=== PATIENT | female | born 1955 | race Caucasian/White ===

== ENCOUNTER 2021-09-25 04:54 | Inpatient (IN) | payer MEDICARE, SELFPAY ==
[2021-09-25] VITALS (12 sets, daily range): BP systolic 103–158; BP diastolic 55–88; PULSE 74–115; RESP 17–20; TEMP 36.1–37.3; O2SAT 90–95; BMI 35.5; BMI 33.6
--- NOTE | 2021-09-25 05:06 | RAD_ITS ---
STUDY: X-RAY CHEST REASON FOR EXAM: Female, 66 years old. sob TECHNIQUE: Single AP portable view of the chest. COMPARISON: None. FINDINGS: Alveolar opacities in the lung bases consistent with bibasilar pneumonia. There is no demonstrated pleural abnormality. Normal size heart. Normal mediastinum and sulaiman. Normal visualized pulmonary arteries. Normal visualized aortic arch and descending thoracic aorta. Normal visualized thoracic spine. Normal visualized ribs, clavicles, and shoulders. There is no demonstrated abnormality of the visualized soft tissue structures of the upper abdomen. RAD/Chest 1 View (Portable) IMPRESSION: Bibasilar pneumonia. Electronically Signed: Mitch Elliott MD at 7:30 EST Tel , Service support ,
--- NOTE | 2021-09-25 05:07 | EKG12_ITS ---
Test Reason : DYSRHYTHMIA Blood Pressure : / mmHG Vent. Rate : 109 BPM Atrial Rate : 109 BPM P-R Int : 132 ms QRS Dur : 078 ms QT Int : 362 ms P-R-T Axes : 050 045 -02 degrees QTc Int : 487 ms Sinus tachycardia with Premature atrial complexes Nonspecific ST abnormality Abnormal ECG Confirmed by SARAH CAZARES, MADAN ([id number]), proposal editor DILLON POLLOCK ([id number]) on 09/30/2021 11:02:00 AM Referred By: TODD Confirmed By:MADAN SMITH MD
--- NOTE | 2021-09-25 05:07 | EDS_ITS ---
HPI History of Present Illness Chief Complaint: Nausea/Vomiting Informant: patient Onset/Context/Timing Onset: Yesterday Narrative Narrative: Patient is currently on day 14 of Covid symptoms. She has had low- grade fever throughout with cough and shortness of breath. Yesterday she developed nausea and vomiting. She has had some loose bowel movements. She called EMS early this morning because of the vomiting. She did not receive Decadron or monoclonal antibodies. She is unvaccinated. PFSH PFSH Medical History no medical history no medical history Home Medications NK 09/25/21 [History Last Taken Unknown] Allergy/AdvReac Type Severity Reaction Status Date / Time nickel Allergy Rash Verified 09/25/21 04:58 Social History Smoking Status: Former smoker ROS ROS ED Constitutional Constitutional ED: Reports fever(s); Denies chills Eyes Eyes: Denies change in vision ENT ENT ED: Denies sore throat Cardiovascular Cardiovascular: Denies chest pain Respiratory/Chest Respiratory/Chest: Reports cough, dyspnea and sputum Gastrointestinal Gastrointestinal: Reports diarrhea, nausea and vomiting; Denies abdominal pain Genitourinary Genitourinary ED: Denies dysuria Musculoskeletal Musculoskeletal: Reports myalgias; Denies back pain Integumentary Denies rash Neurologic Neurologic: Reports weakness; Denies headache(s) Allergic/Immunologic Allergic/Immunologic ED: Denies urticaria EXAM Physical Exam Const Vital Signs: 09/25/21 04:54 09/25/21 04:57 09/25/21 05:16 Temperature 99.1 F 97.8 F Temperature Source Temporal Temporal Pulse Rate 115 H 110 H Respiratory Rate 20 H 19 H Blood Pressure 158/63 H 128/71 H Blood Pressure Mean 94 90 Pulse Ox 90 93 Oxygen Delivery Method Room Air Nasal Cannula Oxygen Flow Rate (L/min) 4 09/25/21 07:21 Temperature 97 F L Temperature Source Temporal Pulse Rate 107 H Respiratory Rate 18 Blood Pressure 103/88 H Blood Pressure Mean 93 Pulse Ox 93 Oxygen Delivery Method Nasal Cannula Oxygen Flow Rate (L/min) 4 Positive well nourished and well developed General Appearance ED: well developed HEENT Reports moist mucous membranes Eyes PERRL and EOMs intact bilaterally Neck supple Chest Wall inspection of chest normal and palpation of chest normal Resp normal respiratory effort and clear to auscultation bilaterally Cardio regular rate and regular rhythm GI non-tender Auscultation: normoactive bowel sounds Palpation: soft Extremity normal to inspection Neuro oriented x3 Sensorium / Orientation: alert Psych mental status grossly normal Skin no rashes or lesions noted MDM MDM MDM Narrative Medical decision making narrative: Patient was initially placed on 2 L of oxygen nasal cannula for O2 sat of 88%. When I am in the room her O2 sat is only 89% and I bumped her up to 4 L. At 4 L she is satting 93%. Patient was given Zofran. Lab work and chest x-ray obtained. Lab Data Attestation: I reviewed the patient's lab results. Labs: Laboratory Results - last 24 hr 09/25/21 09/25/21 09/25/21 05:00 05:00 05:00 WBC 6.9 RBC 5.02 Hgb 14.2 Hct 43.1 MCV 85.9 MCH 28.3 MCHC 32.9 RDW Std Deviation 41.0 RDW Coeff of Kristopher 13.1 Plt Count 385 MPV 9.6 Immature Gran % (Auto) 0.600 Neut % (Auto) 69.6 Lymph % (Auto) 18.8 L [place] % (Auto) 10.7 H Eos % (Auto) 0.0 Baso % (Auto) 0.3 Absolute Neuts (auto) 4.8 Absolute Lymphs (auto) 1.29 Nucleated RBC % 0 Atypical Lymphocytes 1+ D-Dimer Quant (PE/DVT) 2.69 H* Sodium 135 L Potassium 3.5 Chloride 101 Carbon Dioxide 24.0 Anion Gap 10 BUN 10 Creatinine 0.62 Estim Creat Clear Calc 47.14 Est GFR (MDRD) Af Amer 124 Est GFR (MDRD) Non-Af 103 BUN/Creatinine Ratio 16.2 Glucose 131 H Lactic Acid Calcium 8.6 Total Bilirubin 0.70 Direct Bilirubin 0.30 AST 426 H ALT 351 H Alkaline Phosphatase 219 H Troponin I High Sens 10 Total Protein 7.4 Albumin 2.7 L Globulin 4.7 H 09/25/21 05:13 WBC RBC Hgb Hct MCV MCH MCHC RDW Std Deviation RDW Coeff of Kristopher Plt Count MPV Immature Gran % (Auto) Neut % (Auto) Lymph % (Auto) [place] % (Auto) Eos % (Auto) Baso % (Auto) Absolute Neuts (auto) Absolute Lymphs (auto) Nucleated RBC % Atypical Lymphocytes D-Dimer Quant (PE/DVT) Sodium Potassium Chloride Carbon Dioxide Anion Gap BUN Creatinine Estim Creat Clear Calc Est GFR (MDRD) Af Amer Est GFR (MDRD) Non-Af BUN/Creatinine Ratio Glucose Lactic Acid 1.3 Calcium Total Bilirubin Direct Bilirubin AST ALT Alkaline Phosphatase Troponin I High Sens Total Protein Albumin Globulin Radiography Chest X-Ray - ED: 1 View, Read by ED Physician, Right Infiltrate and Left Infiltrate Diagnostic Testing: Clinical Impression(s) from Imaging Studies Chest X-Ray 09/25/21 05:06 IMPRESSION: Bibasilar pneumonia. Electronically Signed: Mitch Elliott MD at 7:30 EST Tel , Service support , Chest CTA 09/25/21 05:46 IMPRESSION: 1. No CT evidence of pulmonary embolism. 2. Moderate bilateral subsegmental atelectasis or pneumonitis. Commonly reported imaging features of Covid 19 pneumonia are present. Other processes such as influenza pneumonia and organizing pneumonia as can be seen in drug toxicity and connective tissue disease can cause a similar imaging pattern. Electronically Signed: Mitch Elliott MD at 7:50 EST Tel , Service support , EKG Initial EKG: Attestation: I personally reviewed and interpreted this EKG as follows: Interpretation: Sinus Tachycardia (Sinus tach at 109. Nonspecific T wave flattening. No significant ST change.) Treatment and Re-Evaluation Comments:: Patient remains nauseated after Zofran was given IV Reglan. Lab work reviewed. White count normal at 6.9. Chemistry studies normal. LFTs elevated with an ALT of 351, AST 426, alk phos 219. D-dimer is 2.69. CTA of the chest obtained that reveals bilateral infiltrates but no evidence of PE. On repeat evaluation patient complains of some reflux will be given Protonix. Given her Covid status and hypoxia she is given a dose of Decadron. I will speak with hospitalist regarding admission. Discharge Plan Triage Chief Complaint: Nausea/Vomiting ED Provider: Jaylyn Moran Dx/Rx/DC Orders Clinical Impression: COVID-19, Hypoxia, Transaminitis Prescriptions: No Action NK RF: 0 Primary Care Provider: Donis Hernandez Referrals: Donis Hernandez MD [Primary Care Provider] - Disposition Disposition: [facility]
[2021-09-25] MEDS: Ondansetron 4 MG/2 ML Vial IV ×2 (05:17→17:57)
[2021-09-25 05:18] LABS: Absolute Lymphocyte Count 1.29 X10^3/uL (0.83-4.51); Absolute Neutrophil Count 4.8 X10^3/uL (2.0-7.7); Basophil# 0.02 X10^3/uL; Basophil% 0.3 % (0-1); Hematocrit 43.1 % (37-47); Hemoglobin 14.2 g/dL (12.0-15.0); Lymphocyte # 1.29 X10^3/ul (0.83-4.51); Lymphocyte % 18.8 % (19-41); Mean Corp Hgb Conc 32.9 g/dL (32-36); Mean Corpuscular Hgb 28.3 pg (27.0-32.0); Mean Corpuscular Volume 85.9 fL (81-99); Mean Platelet Vol. 9.6 fl (6.2-12.0); Monocyte# 0.73 X10^3/uL; Monocyte% 10.7 % (0-10); NRBC Flagged by Analyzer 0 % (0-5); Neutrophil # 4.77 X10^3/uL (2.7-7.7); Neutrophil % 69.6 % (47-70); POSITIVE MORPHOLOGY YES; Platelet Count 385 K/mm3 (150-450); RBC Distribution Width CV 13.1 % (11.6-14.6); Red Blood Count 5.02 M/mm3 (4.2-5.4); White Blood Count 6.9 K/mm3 (4.4-11.0)
[2021-09-25 05:27] LABS: Differential Indicated SCAN CRITERIA MET
[2021-09-25 05:40] LABS: D-Dimer Quantitative (DVT/PE) 2.69 FEU/ug/m (0.27-0.49)
[2021-09-25 05:44] LABS: AST(SGOT) 426 U/L (15-37); Alanine Aminotransfer ALT/SGPT 351 U/L (13-56); Albumin, Serum 2.7 g/dL (3.2-5.0); Alkaline Phosphatase 219 U/L (45-117); Anion Gap 10 (5-15); BUN 10 mg/dL (7-18); BUN/Creat Ratio 16.2 RATIO (10-20); Calcium,Total 8.6 mg/dL (8.5-10.1); Chloride 101 mmol/L (98-107); Creatinine, Serum 0.62 mg/dL (0.55-1.02); EST Glomerular Filtration Rate 103 mL/min (>60); Est Glom Filt Rate - Afr Amer 124 mL/min (>60); Estimated Creatinine Clearance 47.14 ml/min; Globulin 4.7 g/dL (2.2-4.2); Glucose 131 mg/dL (74-106); Potassium 3.5 mmol/L (3.5-5.1); Protein, Total 7.4 g/dL (6.4-8.2); Sodium Level 135 mmol/L (136-145); Troponin-I HS 10 pg/mL (3.0-54.0)
--- NOTE | 2021-09-25 05:46 | CT_ITS ---
STUDY: CTA CHEST REASON FOR EXAM: Female, 66 years old. hypoxia, covid RADIATION DOSAGE (If Supplied By Facility): CTDIvol = ( 12.42 ) mGy, DLP = ( 499.67 ) mGycm TECHNIQUE: The examination was performed with the intravenous administration of IV 100mL Isovue-370. Post-processing of the angiographic images was performed, with multiplanar reformation and 3D reconstruction. Individualized dose optimization techniques were used for this CT. COMPARISON: Chest x-ray earlier today FINDINGS: Normal enhancement of the main pulmonary artery and right and left pulmonary arteries. Normal enhancement of the bilateral peripheral pulmonary arteries. There is no demonstrated pulmonary embolism. Normal thoracic aorta and visualized great vessels. There is no demonstrated aortic dissection. Normal heart and pericardium. Several prominent mediastinal lymph nodes which are likely reactive. Normal hilar regions. Normal visualized trachea and bronchi. The lungs are well expanded. Bilateral patchy groundglass opacities consistent with moderate subsegmental atelectasis or pneumonitis. Normal pleura. Normal chest wall structures. Normal osseous structures. Normal visualized upper abdomen. CT/CTA Chest W/WO Contrast IMPRESSION: 1. No CT evidence of pulmonary embolism. 2. Moderate bilateral subsegmental atelectasis or pneumonitis. Commonly reported imaging features of Covid 19 pneumonia are present. Other processes such as influenza pneumonia and organizing pneumonia as can be seen in drug toxicity and connective tissue disease can cause a similar imaging pattern. Electronically Signed: Mitch Elliott MD at 7:50 EST Tel , Service support ,
[2021-09-25 05:49] LABS: Atypical Lymphocyte 1+ %
[2021-09-25 06:05] LABS: Lactic Acid 1.3 mmol/L (0.4-1.9)
[2021-09-25] MEDS: Metoclopramide 10 MG/2 ML Vial 5 MG IV (06:12)
--- NOTE | 2021-09-25 08:42 | HP.PCM.HOS_ITS ---
HPI - General General Date of Admission: 09/25/21 HPI Narrative BRAULIO WONG, is a 66 F with a PMH as outlined who presents with a complaint of nausea adn vomiting. Today is day 14 of her symptoms from COVID. She came in because of nausea and vomiting. She also had shortness of breath and cough, and also had some loose stools. She has not received decadron or monoclonal antibodies and she is also unvaccinated. She denied any fever or chills. She was saturating at 88% on room air in the ED, and even on 2L of oxygen only went up to 90%. Vitals in the ED were BP of 103/88, AL of 107, RR of 18 and temp of 97F. She was saturating at 93% on 4L of oxygen. CBC was unremarkable and CMP was remarkable for elevated AST(426(, ALT (351) and ALP (219). D dimer was elevated at 2.69, and CTA of the chest was negative for PE, but showed moderate bilateral subsegmental atelectasis or pneumonitis due to covid pneumonia. CXR also showed bibasilar pneumonia. She is being admitted to be managed for acute hypoxic respiratory failure due to COVID 19 pneumonia. [facility] Medical History Anxiety Medical History no medical history Home Medications Vitamin D3 1 09/25/21 [History Last Taken 09/24/21] multivitamin 1 tab PO DAILY 09/25/21 [History Last Taken Unknown] zinc 22 mg PO DAILY 09/25/21 [History Last Taken 09/24/21] Allergy/AdvReac Type Severity Reaction Status Date / Time nickel Allergy Rash Verified 09/25/21 11:46 Social History Smoking Status: Former smoker ROS Constitutional Constitutional: Reports chills, fatigue, fever(s), malaise and weakness; Denies anorexia Eyes Eyes: Denies change in vision ENT HEENT: Denies ear pain, headache(s) or nasal congestion Cardiovascular Cardiovascular: Reports dyspnea on exertion, lightheadedness, palpitations and rapid heart rate; Denies chest pain, edema, orthopnea, paroxysmal nocturnal dyspnea or syncope Respiratory/Chest Respiratory/Chest: Reports cough, dyspnea, productive cough, shortness of breath at rest, shortness of breath with exertion and wheezing; Denies excessive phlegm production Gastrointestinal Gastrointestinal: Reports nausea and vomiting; Denies abdominal pain, constipation or diarrhea Genitourinary Genitourinary: Denies burning urination, dysuria or urinary frequency Musculoskeletal Musculoskeletal: Denies arthralgias or joint pain Neurologic Neurologic: Denies confusion, dizziness, focal weakness, headache(s) or seizures Psychiatric Psychiatric: Denies anxiety Vital Signs Vital Signs Vital Signs: 09/25/21 04:54 09/25/21 04:57 09/25/21 05:16 Temperature 99.1 F 97.8 F Temperature Source Temporal Temporal Pulse Rate 115 H 110 H Respiratory Rate 20 H 19 H Blood Pressure 158/63 H 128/71 H Blood Pressure Mean 94 90 Pulse Ox 90 93 Oxygen Delivery Method Room Air Nasal Cannula Oxygen Flow Rate (L/min) 4 09/25/21 07:21 Temperature 97 F L Temperature Source Temporal Pulse Rate 107 H Respiratory Rate 18 Blood Pressure 103/88 H Blood Pressure Mean 93 Pulse Ox 93 Oxygen Delivery Method Nasal Cannula Oxygen Flow Rate (L/min) 4 Weight Weight: 207 lb 0.225 oz Body Mass Index (BMI) 35.5 Physical Exam Const alert and oriented x3 General Appearance: cooperative HEENT normocephalic, head/scalp atraumatic and hearing grossly normal bilaterally HEENT Narrative: dry oral mucous membranes Eyes PERRL, EOMs intact bilaterally and conjunctivae normal Neck no lymphadenopathy Resp Resp Narrative: diminished breath sounds bibasally, no wheezes or crackles. On 4L of oxygen by nasal canula Cardio regular rhythm, S1 normal heart sound, S2 normal heart sound and no murmurs Cardio Narrative: tachycardic. GI normal to inspection, nondistended, normoactive bowel sounds, soft to palpation, non-tender and non-distended Extremity normal to inspection, full ROM and no clubbing, cyanosis or edema Peripheral Pulses: Yes pulses 2+ throughout Skin no rashes or lesions noted Neuro oriented x3, CN's II-XII intact bilaterally and moves all extremities Sensorium / Orientation: awake and alert Psych affect normal Results Lab / Micro Data Result Diagrams: 09/25/21 05:00 09/25/21 05:00 Labs: Laboratory Results - last 24 hr 09/25/21 05:00: WBC 6.9, RBC 5.02, Hgb 14.2, Hct 43.1, MCV 85.9, MCH 28.3, MCHC 32.9, RDW Std Deviation 41.0, RDW Coeff of Kristopher 13.1, Plt Count 385, MPV 9.6, Immature Gran % (Auto) 0.600, Neut % (Auto) 69.6, Lymph % (Auto) 18.8 L, [place] % (Auto) 10.7 H, Eos % (Auto) 0.0, Baso % (Auto) 0.3, Absolute Neuts (auto) 4.8, Absolute Lymphs (auto) 1.29, Nucleated RBC % 0, Atypical Lymphocytes 1+ 09/25/21 05:00: D-Dimer Quant (PE/DVT) 2.69 H* 09/25/21 05:00: Sodium 135 L, Potassium 3.5, Chloride 101, Carbon Dioxide 24.0, Anion Gap 10, BUN 10, Creatinine 0.62, Estim Creat Clear Calc 47.14, Est GFR (MDRD) Af Amer 124, Est GFR (MDRD) Non-Af 103, BUN/Creatinine Ratio 16.2, Glucose 131 H, Calcium 8.6, Total Bilirubin 0.70, Direct Bilirubin 0.30, AST 426 H, ALT 351 H, Alkaline Phosphatase 219 H, Troponin I High Sens 10, Total Protein 7.4, Albumin 2.7 L, Globulin 4.7 H 09/25/21 05:13: Lactic Acid 1.3 Radiology Impression Chest X-Ray 09/25/21 05:06 IMPRESSION: Bibasilar pneumonia. Electronically Signed: Mitch Elliott MD at 7:30 EST Tel , Service support , Chest CTA 09/25/21 05:46 IMPRESSION: 1. No CT evidence of pulmonary embolism. 2. Moderate bilateral subsegmental atelectasis or pneumonitis. Commonly reported imaging features of Covid 19 pneumonia are present. Other processes such as influenza pneumonia and organizing pneumonia as can be seen in drug toxicity and connective tissue disease can cause a similar imaging pattern. Electronically Signed: Mitch Elliott MD at 7:50 EST Tel , Service support , Assessment & Plan Assessment/Plan (1) COVID-19: (2) Acute respiratory failure with hypoxia: (3) Transaminitis: PLAN: #Acute hypoxic respiratory failure due to COVID pneumonia * admit to med surg * out of window for remdesivir; today is day 14 since symptoms started. * start on PO decadron 6mg daily. * titrate oxygen to maintain sats >90% * breathing treatment with bronchodilators * urine for strep and legionella. Check sputum culture * #Elevated D dimer: due to covid. CTA negative for PE #Transaminitis: may also be due to covid. no history of liver disease. Will trend and monitor DVT prophylaxis: lovenox 40mg bid. Code status: full code * Patient and son counseled extensively about different types of CODE STATUS including full code, DNR CCA and DNR CCA. Patient elects to be full code. * Total [id number] time 16 minutes. Charges/Coding Visit Charges Inpatient E&M: 35754 Init Hosp L3 Procedures Hospitalists Procedures: 12307 Advncd Care Plan 30 Min
--- NOTE | 2021-09-25 08:42 | NURSING ---
DR HOLLIS FOR DR BENDER
--- NOTE | 2021-09-25 08:47 | NURSING ---
MED SURG TELMA SLOAN, HYPOXIA, TRANSMINITIS
--- NOTE | 2021-09-25 08:49 | NURSING ---
NO OLD EKGS
[2021-09-25] MEDS: dexAMETHasone 4 MG/ML Vial 6 MG IV (09:03)
[2021-09-25] MEDS: proMETHazine 25 MG/ML Syringe 12.5 MG IM (09:03)
--- NOTE | 2021-09-25 12:07 | PCS.PANDOC ---
PANDEMIC DOCUMENTATION INITIATED: Date: 09/25/2021 Time: 1059
[2021-09-25 12:44] LABS: BNP,B-Type NATRIURETIC PEPTIDE 25.2 pg/mL (0-100)
[2021-09-25 12:54] LABS: Procalcitonin 0.17 ng/mL (0.00-0.09)
[2021-09-25] MEDS: 0.9% Normal Saline 1,000 ML 125 ML IV (13:20)
[2021-09-25] MEDS: 0.9% Saline Lock 10 ML Syringe IV ×2 (13:21→17:57)
--- NOTE | 2021-09-25 16:30 | CASEMGMT ---
REYNA SALCIDO STEAM TABLE WORKER OMARI placed call to pt's room for initial transition planning/care coordination assessment. REYNA SALCIDO introduced self and role at [facility]. Pt voices understanding and consents to assessment at this time. Pt is A/O at this time and answers all questions appropriately. Care providers, pharmacy, and demographics verified/updated at this time. COVID testing done @ [facility] in [place] PCP: Dr Hernandez Specialists: none Preferred Pharmacy:[facility] Insurance: [employer] Prescription Benefit: Yes Living Will/HPOA: Pt does not currently have LW/HCPOA and declines info LNOK: SonBrody Living Arrangements: Lives alone in 2-story home w/2-3 steps to enter. Bedroom on 2nd floor but could do FFSU if needed. Family/friends supportive and have been bringing food/meals to her while in isolation. Independent prior to COVID illness Transportation: Pt states drives self and states no transportation concerns at this time. DME: Denies having any DME. Recommended getting a pulse ox. Pt may qualify for Home O2 @ d/c and this was discussed w/pt. She has no preference of DME co for O2. TC to Mireya @ [facility]. Mireya confirms they would be able to service O2 for pt if she discharges over the next couple of days. HHC/SNF: No hx of either and no needs identified. Pt wishes to return home and states has no concerns with going home at time of discharge. Nursing to follow for home oxygen needs and any further discharge planning/needs. Pt voices no further concerns/needs at this time. PLAN: Home. Follow for possible Home O2 @ d/c. Green sheet placed on chart w/instructions for Home O2 set up if needed. Raquel SPENCERN REYNA SALCIDO
[2021-09-25] MEDS: Enoxaparin 30 MG/0.3 ML Syringe SC (21:01)
[2021-09-26] VITALS (16 sets, daily range): BP systolic 128–150; BP diastolic 68–76; PULSE 77–94; RESP 18–20; TEMP 36.6–36.9; O2SAT 86–97
[2021-09-26] MEDS: Ondansetron 4 MG/2 ML Vial 8 MG IV (01:38)
[2021-09-26] MEDS: 0.9% Saline Lock 10 ML Syringe IV ×3 (01:38→20:27)
[2021-09-26 05:57] LABS: Absolute Lymphocyte Count 1.68 X10^3/uL (0.83-4.51); Basophil# 0.01 X10^3/uL; Basophil% 0.2 % (0-1); Eosinophil# 0.01 X10^3/uL; Eosinophils% 0.2 % (0-5); Hematocrit 39.7 % (37-47); Hemoglobin 12.8 g/dL (12.0-15.0); Lymphocyte # 1.68 X10^3/ul (0.83-4.51); Lymphocyte % 25.2 % (19-41); Mean Corp Hgb Conc 32.2 g/dL (32-36); Mean Corpuscular Hgb 28.3 pg (27.0-32.0); Mean Corpuscular Volume 87.6 fL (81-99); Mean Platelet Vol. 9.3 fl (6.2-12.0); Monocyte% 13.5 % (0-10); NRBC Flagged by Analyzer 0 % (0-5); Neutrophil # 4.01 X10^3/uL (2.7-7.7); Neutrophil % 60.1 % (47-70); POSITIVE MORPHOLOGY YES; Platelet Count 417 K/mm3 (150-450); RBC Distribution Width CV 13.2 % (11.6-14.6); RBC Distribution Width SD 42.7 fl (35.1-43.9); Red Blood Count 4.53 M/mm3 (4.2-5.4); White Blood Count 6.7 K/mm3 (4.4-11.0)
[2021-09-26 06:09] LABS: Differential Indicated SCAN CRITERIA MET
[2021-09-26 06:40] LABS: Anion Gap 8 (5-15); BUN 12 mg/dL (7-18); BUN/Creat Ratio 21.7 RATIO (10-20); Calcium,Total 8.5 mg/dL (8.5-10.1); Chloride 105 mmol/L (98-107); Creatinine, Serum 0.55 mg/dL (0.55-1.02); EST Glomerular Filtration Rate 116 mL/min (>60); Est Glom Filt Rate - Afr Amer 141 mL/min (>60); Estimated Creatinine Clearance 47.14 ml/min; Glucose 113 mg/dL (74-106); Potassium 3.6 mmol/L (3.5-5.1); Sodium Level 141 mmol/L (136-145)
[2021-09-26] MEDS: dexAMETHasone 4 MG Tablet 6 MG PO (08:28)
[2021-09-26] MEDS: Enoxaparin 30 MG/0.3 ML Syringe SC ×2 (08:28→20:28)
[2021-09-26 10:13] LABS: AST(SGOT) 253 U/L (15-37); Alanine Aminotransfer ALT/SGPT 270 U/L (13-56); Albumin, Serum 2.4 g/dL (3.2-5.0); Alkaline Phosphatase 178 U/L (45-117); Globulin 4.3 g/dL (2.2-4.2); Protein, Total 6.7 g/dL (6.4-8.2)
[2021-09-26] MEDS: Ondansetron 4 MG/2 ML Vial IV (11:03)
--- NOTE | 2021-09-26 13:23 | PN.HOSP_ITS ---
Subjective Subjective Patient seen and examined. She is feeling a bit better today, but has no active complaints. Review of systems is otherwise negative. She has remained hemodynamically stable. She is on 2L of oxygen by nasal canula. Objective Data Objective Data Vital Signs: Vital Signs Temp Pulse Resp BP Pulse Ox 98.5 F 85 18 150/76 H 92 09/26/21 08:23 09/26/21 11:00 09/26/21 08:23 09/26/21 08:23 09/26/21 08:30 Oxygen Flow Rate (L/min) [ 4 AMBULATING with Oxygen #1] Oxygen Flow Rate (L/min) [At 4 REST with Oxygen] Oxygen Flow Rate (L/min) 2 Oxygen Delivery Method Nasal Cannula Weight: 195 lb 15.855 oz Body Mass Index (BMI) 33.6 Intake & Output: Intake and Output for Last 24 Hours 09/24/21 09/25/21 09/26/21 23:59 23:59 23:59 Intake Total 1474.58 / 1474.58 500 / 500 Output Total 550 / 550 Balance 924.58 / 924.58 500 / 500 Medical Nutrition Assessment Dietitian: Malnutrition Criteria Met Start: 09/25/21 13:51 Freq: Status: Active Protocol: Document 09/25/21 13:51 AG (Rec: 09/25/21 13:51 AG [id number]) Nutrition Malnutrition Evidence of Malnutrition Exists Yes Malnutrition (moderate): Acute Illness/Injury Evidenced By Suboptimal Energy Intake ( Moderate),Weight Loss ( Moderate) Clinical Problem Acute Disease or Injury Related Malnutrition Etiology moderate, acute malnutrition r /t inadequate energy intake d/ t GI dysfunction Signs/Symptoms as evidenced by unintentional wt loss of 7#/3.4% x 2 weeks, estimated PO intake meeting < 75% of estimated energy needs >1 week Status Active Problem Recommendation Dietitian Recommendations/Changes regular diet, 4oz ensure clear w/ meals d/t acute malnutrition Lab / Micro Data Result Diagrams: 09/26/21 04:58 09/26/21 04:58 Labs: Laboratory Results - last 24 hr 09/26/21 04:58: WBC 6.7, RBC 4.53, Hgb 12.8, Hct 39.7, MCV 87.6, MCH 28.3, MCHC 32.2, RDW Std Deviation 42.7, RDW Coeff of Kristopher 13.2, Plt Count 417, MPV 9.3, Immature Gran % (Auto) 0.800, Neut % (Auto) 60.1, Lymph % (Auto) 25.2, [place] % (Auto) 13.5 H, Eos % (Auto) 0.2, Baso % (Auto) 0.2, Absolute Neuts (auto) 4.0, Absolute Lymphs (auto) 1.68, Nucleated RBC % 0 09/26/21 04:58: Sodium 141, Potassium 3.6, Chloride 105, Carbon Dioxide 28.0, Anion Gap 8, BUN 12, Creatinine 0.55, Estim Creat Clear Calc 47.14, Est GFR (MDRD) Af Amer 141, Est GFR (MDRD) Non-Af 116, BUN/Creatinine Ratio 21.7 H, Glucose 113 H, Calcium 8.5 09/26/21 04:58: Total Bilirubin 0.50, Direct Bilirubin 0.20, AST 253 H, ALT 270 H, Alkaline Phosphatase 178 H, Total Protein 6.7, Albumin 2.4 L, Globulin 4.3 H Micro: Microbiology 09/25/21 15:00 Urine, Clean Catch Legionella Antigen - Final 09/25/21 15:00 Urine, Clean Catch Streptococcus pneumoniae Antigen (M - Final Physical Exam Const alert, oriented x3 and no apparent distress General Appearance: cooperative Exam Limitations: no limitations HEENT normocephalic, head/scalp atraumatic, hearing grossly normal bilaterally and moist oral mucous membranes Head and Scalp: normocephalic Eyes PERRL, EOMs intact bilaterally and conjunctivae normal Neck no lymphadenopathy Resp Resp Narrative: diminished breath sounds bibasally, no wheezes or crackles. On 2L of oxygen by nasal canula Cardio regular rate, regular rhythm, S1 normal heart sound, S2 normal heart sound and no murmurs GI normal to inspection, nondistended, normoactive bowel sounds, soft to palpation, non-tender and non-distended Extremity normal to inspection, full ROM and no clubbing, cyanosis or edema Peripheral Pulses: Yes pulses 2+ throughout Skin no rashes or lesions noted Neuro oriented x3, CN's II-XII intact bilaterally and moves all extremities Sensorium / Orientation: awake and alert Psych affect normal Assessment & Plan Assessment/Plan (1) COVID-19: (2) Acute respiratory failure with hypoxia: (3) Transaminitis: PLAN: #Acute hypoxic respiratory failure due to COVID pneumonia * now on 2L of oxygen, down from 4L on admission. * out of window for remdesivir; * on PO decadron 6mg daily. * titrate oxygen to maintain sats >90% * breathing treatment with bronchodilators * urine for strep and legionella were negative. Sputum culture and gram stain pending. * #Elevated D dimer: due to covid. CTA negative for PE #Transaminitis: * May also be due to covid. * No history of liver disease.liver enzymes trending downwards. DVT prophylaxis: lovenox 40mg bid. Code status: full code * Charges/Coding Visit Charges Inpatient E&M: 53632 Subs Hosp L2
[2021-09-27] VITALS (8 sets, daily range): BP systolic 144–149; BP diastolic 65–72; PULSE 70–95; RESP 18–20; TEMP 36.6–36.8; O2SAT 92–95
[2021-09-27 06:55] LABS: Absolute Lymphocyte Count 2.05 X10^3/uL (0.83-4.51); Absolute Neutrophil Count 5.4 X10^3/uL (2.0-7.7); Basophil# 0.02 X10^3/uL; Basophil% 0.2 % (0-1); Eosinophil# 0.02 X10^3/uL; Eosinophils% 0.2 % (0-5); Hematocrit 39.3 % (37-47); Hemoglobin 12.5 g/dL (12.0-15.0); Lymphocyte # 2.05 X10^3/ul (0.83-4.51); Lymphocyte % 23.5 % (19-41); Mean Corp Hgb Conc 31.8 g/dL (32-36); Mean Corpuscular Hgb 28.3 pg (27.0-32.0); Mean Corpuscular Volume 89.1 fL (81-99); Mean Platelet Vol. 9.1 fl (6.2-12.0); Monocyte# 1.15 X10^3/uL; Monocyte% 13.2 % (0-10); NRBC Flagged by Analyzer 0 % (0-5); Platelet Count 481 K/mm3 (150-450); RBC Distribution Width CV 13.2 % (11.6-14.6); RBC Distribution Width SD 43.6 fl (35.1-43.9); Red Blood Count 4.41 M/mm3 (4.2-5.4); White Blood Count 8.7 K/mm3 (4.4-11.0)
[2021-09-27 07:16] LABS: Anion Gap 6 (5-15); BUN 20 mg/dL (7-18); BUN/Creat Ratio 31.7 RATIO (10-20); Calcium,Total 8.6 mg/dL (8.5-10.1); Chloride 107 mmol/L (98-107); Creatinine, Serum 0.63 mg/dL (0.55-1.02); EST Glomerular Filtration Rate 100 mL/min (>60); Est Glom Filt Rate - Afr Amer 121 mL/min (>60); Estimated Creatinine Clearance 47.14 ml/min; Glucose 93 mg/dL (74-106); Potassium 3.7 mmol/L (3.5-5.1); Sodium Level 139 mmol/L (136-145)
[2021-09-27] MEDS: Enoxaparin 30 MG/0.3 ML Syringe SC (08:07)
[2021-09-27] MEDS: Ondansetron 4 MG/2 ML Vial IV (08:07)
[2021-09-27] MEDS: 0.9% Saline Lock 10 ML Syringe IV (08:07)
[2021-09-27] MEDS: dexAMETHasone 4 MG Tablet 6 MG PO (08:08)
--- NOTE | 2021-09-27 11:30 | DS.PCM_ITS ---
Providers Date of Admission: 09/25/21 Primary Care Physician: Dr. Donis Hernandez MD Reason For Visit: ACUTE HYPOXIC RESP FAILURE DUE TO COVID19 Diagnosis Discharge Diagnosis (1) COVID-19: Status: Acute Code(s): U07.1 - COVID-19 (2) Acute respiratory failure with hypoxia: Status: Acute Code(s): J96.01 - Acute respiratory failure with hypoxia (3) Transaminitis: Status: Acute Code(s): R74.01 - Elevation of levels of liver transaminase levels Medications at Discharge Home Medications Vitamin D3 1 09/25/21 multivitamin 1 tab PO DAILY 09/25/21 zinc 22 mg PO DAILY 09/25/21 dexamethasone 6 mg PO DAILY #9 tab 09/27/21 Hospital Course Operations None Procedures None Summary of Care Provided Minutes Spent on Discharge: 40 Hospital Course: BRAULIO WONG, is a 66 F with a PMH as outlined who presents with a complaint of nausea adn vomiting. Today is day 14 of her symptoms from COVID. She came in because of nausea and vomiting. She also had shortness of breath and cough, and also had some loose stools. She has not received decadron or monoclonal antibodies and she is also unvaccinated. She denied any fever or chills. She was saturating at 88% on room air in the ED, and even on 2L of oxygen only went up to 90%. Vitals in the ED were BP of 103/88, VA of 107, RR of 18 and temp of 97F. She was saturating at 93% on 4L of oxygen. CBC was unremarkable and CMP was remarkable for elevated AST(426(, ALT (351) and ALP (219). D dimer was elevated at 2.69, and CTA of the chest was negative for PE, but showed moderate bilateral subsegmental atelectasis or pneumonitis due to covid pneumonia. CXR also showed bibasilar pneumonia. She was admitted to be managed for acute hypoxic respiratory failure due to COVID 19 pneumonia. She was out of window for remdesivir; she was started on decadron. She was gradually weaned off of oxygen and felt much better. She was discharged home on 09/27/2021; she had walking pulse which showed that she didnt need any home oxygen. She is to follow up with her PCP in 1-2 weeks. She is to remain in self isolation till October 01, 2021 to complete a 20 day course of self isolation. Patient seen and examined prior to discharge. She felt much better and had no active complaints. Review of systems is negative. Labs and vitals reviewed. Home medication reviewed and reconciled. Physical Exam Const alert, oriented x3 and no apparent distress General Appearance: cooperative Exam Limitations: no limitations HEENT normocephalic, head/scalp atraumatic, hearing grossly normal bilaterally and moist oral mucous membranes Eyes PERRL, EOMs intact bilaterally and conjunctivae normal Neck no lymphadenopathy Resp Resp Narrative: diminished breath sounds bibasally, no wheezes or crackles. On room air. Cardio regular rate, regular rhythm, S1 normal heart sound, S2 normal heart sound and no murmurs GI normal to inspection, nondistended, normoactive bowel sounds, soft to palpation, non-tender and non-distended Extremity normal to inspection, full ROM and no clubbing, cyanosis or edema Skin no rashes or lesions noted Neuro oriented x3, CN's II-XII intact bilaterally and moves all extremities Sensorium / Orientation: awake and alert Psych affect normal Medical Records Data Medical Nutrition Assessment Dietitian: Malnutrition Criteria Met Start: 09/25/21 13:51 Freq: Status: Active Protocol: Document 09/25/21 13:51 (Rec: 09/25/21 13:51 [id number]) Nutrition Malnutrition Evidence of Malnutrition Exists Yes Malnutrition (moderate): Acute Illness/Injury Evidenced By Suboptimal Energy Intake ( Moderate),Weight Loss ( Moderate) Clinical Problem Acute Disease or Injury Related Malnutrition Etiology moderate, acute malnutrition r /t inadequate energy intake d/ t GI dysfunction Signs/Symptoms as evidenced by unintentional wt loss of 7#/3.4% x 2 weeks, estimated PO intake meeting < 75% of estimated energy needs >1 week Status Active Problem Recommendation Dietitian Recommendations/Changes regular diet, 4oz ensure clear w/ meals d/t acute malnutrition Weight / BMI Weight Weight: 195 lb 15.855 oz Body Mass Index (BMI) 33.6 ABG / Lab / Microbiology Data Result Diagrams: 09/27/21 06:35 09/27/21 06:35 Laboratory: Laboratory Results - last 24 hr 09/27/21 06:35: WBC 8.7, RBC 4.41, Hgb 12.5, Hct 39.3, MCV 89.1, MCH 28.3, MCHC 31.8 L, RDW Std Deviation 43.6, RDW Coeff of Kristopher 13.2, Plt Count 481 H, MPV 9.1, Immature Gran % (Auto) 0.900, Neut % (Auto) 62.0, Lymph % (Auto) 23.5, [place] % (Auto) 13.2 H, Eos % (Auto) 0.2, Baso % (Auto) 0.2, Absolute Neuts (auto) 5.4, Absolute Lymphs (auto) 2.05, Nucleated RBC % 0 09/27/21 06:35: Sodium 139, Potassium 3.7, Chloride 107, Carbon Dioxide 26.0, Anion Gap 6, BUN 20 H, Creatinine 0.63, Estim Creat Clear Calc 47.14, Est GFR (MDRD) Af Amer 121, Est GFR (MDRD) Non-Af 100, BUN/Creatinine Ratio 31.7 H, Glucose 93, Calcium 8.6 Microbiology: Microbiology 09/25/21 05:14 Blood Culture (Wb) - Anticubital Left Blood Culture - Preliminary No growth in 48 hours. 09/25/21 05:13 Blood Culture (Wb) - Anticubital Right Blood Culture - Preliminary No growth in 48 hours. 09/26/21 08:35 Sputum, Expectorated/Coughed Respiratory Culture - Preliminary Appears to be normal respiratory nallely. Further studies to follow. 09/25/21 15:00 Urine, Clean Catch Legionella Antigen - Final 09/25/21 15:00 Urine, Clean Catch Streptococcus pneumoniae Antigen (M - Final D/C Instructions Discharge Diet: Low fat / Low cholesterol Discharge Activity: Return to Normal Activity Weight Bearing Status: Weight bearing as tolerated Call your doctor if you observe: Fever of 101 or Higher, Shortness of breath, Dizziness, Chest pain and Increased palpitations (irregular heartbeat) Meaningful Use Info Meaningful Use Diagnoses (Choose all that apply): None applicable Discharge Plan Admission Admit Date/Time: 09/25/21 08:50 Primary Reason for Your Visit: acute hypoxic respiratory failure due to covid. Attending Provider: Gem Gilliland Primary Care Provider: Donis Hernandez Instructions Patient Instructions: Coronavirus Disease 2019 (COVID-19): Overview, Coronavirus Disease 2019 (COVID-19): Caring for Yourself or Others Additional Instructions / Restrictions: remain in self isolation till October 01 2021. Discharge Orders/Prescriptions Prescriptions: New dexamethasone 6 mg tablet 6 mg PO DAILY Qty: 9 RF: 0 Continued multivitamin Tablet 1 tab PO DAILY RF: 0 zinc 22 mg Tablet 22 mg PO DAILY RF: 0 Vitamin D3 1 RF: 0 Referrals / Follow Up: Donis Hernandez MD [Primary Care Provider] - Within 2 Weeks Disposition Disposition (needs filled in before D/C Order can be placed): Home, Self Care Charges/Coding Visit Charges Inpatient E&M: 95298 Disch Hosp
== END 2021-09-27 12:58 | disposition home or self-care (01) | DRG 177 ==
LOC: ED 08:03 → MS3 11:46
PROVIDERS: Admitting Provider Student in an Organized Health Care Education/Training Program; Emergency Provider Emergency Medicine; PCP Family Medicine; Visit Provider Student in an Organized Health Care Education/Training Program
DX: U07.1 COVID-19 (principal); J12.82 Pneumonia due to coronavirus disease 2019; J96.01 Acute respiratory failure with hypoxia; E44.0 Moderate protein-calorie malnutrition; K21.9 Gastro-esophageal reflux disease without esophagitis; Z87.891 Personal history of nicotine dependence; Z68.33 Body mass index [BMI] 33.0-33.9, adult
CPT/HCPCS: 36415; 71045; 71275; 80048; 80076; 83605; 83880; 84145; 84484; 85025; 85379; 87040; 87070; 87205; 87449; 93005; 97802; 99251; 99285; J7030; Q9967; A4216; G0463; J2405

== ENCOUNTER 2021-10-11 03:04 | Emergency (ER) | payer MEDICARE, SELFPAY ==
[2021-10-11 03:05] VITALS: BP 170/82; PULSE 103; RESP 16; TEMP 36.4; O2SAT 97; BMI 34.8
[2021-10-11 03:32] VITALS: BP 142/72; PULSE 78; RESP 17; O2SAT 98
--- NOTE | 2021-10-11 03:37 | EX.ED.DYSGE1 ---
HPI History of Present Illness Chief Complaint: Nosebleed Informant: patient Narrative Narrative: Patient is a 66-year-old female presenting for epistaxis and hypertension. Patient states she woke up from sleep to use the restroom. She felt that her nose was running and when she went to the bathroom she knows it was bleeding. She states was bleeding quite quickly from the right side. She started to get panicked she is never had a nosebleed before. She was worried that she could have something more severe going on and she called 911. She was found to be hypotensive for EMS which is why she decided to come to the emergency room as the bleeding had stopped by the time EMS arrived. Patient has had a mild headache. Patient did recently have COVID-19 and was hospitalized for short time. Patient was hospitalized from 09/25-09/27 for acute hypoxic respiratory failure associated with COVID-19 infection. She was discharged on a course of Decadron. Patient states she just recently finished the Decadron. She notes that while she was on oxygen in the hospital she did not use the minified oxygen because of the sound of the bubbling reminded her to much of her who from lung cancer. She also notes the cold air lately has been burning her nose. She denies any significant blowing of her nose or trauma to her nose. She is not on any blood thinners. She did receive subcu Lovenox for DVT prophylaxis while in the hospital. Patient denies associated chest pain, shortness of breath, dizziness, lightheadedness or any other complaints. She denies any history of hypertension. She states overall she is starting to feel better from her recent infection. [facility] Medical History Anxiety COVID-19 Home Medications Vitamin D3 1 tab OTHER DAILY 09/25/21 [History Last Taken 09/24/21] multivitamin 1 tab PO DAILY 09/25/21 [History Last Taken Unknown] zinc 22 mg PO DAILY 09/25/21 [History Last Taken 09/24/21] dexamethasone 6 mg PO DAILY #9 tab 09/27/21 [Rx Last Taken Unknown] ondansetron 4 mg PO Q8H PRN #30 tab 09/27/21 [Rx Last Taken Unknown] Allergy/AdvReac Type Severity Reaction Status Date / Time nickel Allergy Rash Verified 09/25/21 11:46 Social History Smoking Status: Former smoker ROS ROS ED Constitutional Constitutional ED: Denies chills or fever(s) Eyes Eyes: Denies change in vision ENT ENT ED: Reports other Details: Epistaxis ; Denies ear pain or rhinorrhea Cardiovascular Cardiovascular: Denies chest pain Respiratory/Chest Respiratory/Chest: Denies dyspnea Gastrointestinal Gastrointestinal: Denies abdominal pain, nausea or vomiting Musculoskeletal Musculoskeletal: Reports other; Denies arthralgias or myalgias Integumentary Denies rash Neurologic Neurologic: Reports headache(s); Denies paresthesias or weakness Psychiatric Psychiatric: Reports anxiety; Denies depression EXAM Physical Exam Const Vital Signs: 10/11/21 03:05 10/11/21 03:32 Temperature 97.6 F L Temperature Source Oral Pulse Rate 103 H 78 Respiratory Rate 16 17 Blood Pressure 170/82 H 142/72 H Blood Pressure Mean 111 95 Pulse Ox 97 98 Oxygen Delivery Method Room Air Room Air Positive well nourished and well developed General Appearance ED: well developed HEENT Reports TM's clear and moist mucous membranes HEENT Narrative: Dried blood noted in the right nares with no active bleeding. There does seem to be an area that showed signs of prior bleeding of the anterior right nasal septum. Negative for trauma or tenderness Tympanic Membrane ED: Yes TM's clear Eyes PERRL and EOMs intact bilaterally Neck supple Chest Wall inspection of chest normal Resp normal respiratory effort and clear to auscultation bilaterally Cardio regular rate, regular rhythm and no murmurs GI normal to inspection, nondistended, normoactive bowel sounds Extremity normal to inspection General Extremety ED: Negative for edema or tenderness General Extremity: Negative for edema Neuro oriented x3 and CN's II-XII intact bilaterally Sensorium / Orientation: alert Motor Exam: Negative for general weakness Psych mental status grossly normal Mood & Affect: anxious Skin no rashes or lesions noted and no wounds MDM MDM MDM Narrative Medical decision making narrative: Patient evaluated after an episode of epistaxis. In addition her blood pressure was elevated. Patient has no further bleeding. She is only had 1 episode of epistaxis and I suspect it was brought on from recent oxygen use during hospitalization another cold air. She is encouraged to use nasal saline for her nose and humidified oxygen at home. She is given referral for ENT. She is counseled on the proper way to treat epistaxis. While patient was initially hypertensive on arrival her blood pressure dropped significantly without any intervention. She does not have a known history of high blood pressure and I wonder if situational factors are increasing and as well as her recent steroid use. As she is not have any findings consistent with a hypertensive emergency. At this time she does not want further evaluation for her blood pressure which I think is reasonable. She will follow-up outpatient with her primary care doctor. She is counseled on return precautions as well as signs and symptoms of a hypertensive emergency. Patient is discharged home with her son. Discharge Plan Triage Chief Complaint: Nosebleed ED Provider: Jessica Bah Dx/Rx/DC Orders Clinical Impression: Acute anterior epistaxis, Elevated BP without diagnosis of hypertension Instructions: José, ED Hypertension, To Be Confirmed Prescriptions: No Action multivitamin Tablet 1 tab PO DAILY RF: 0 zinc 22 mg Tablet 22 mg PO DAILY RF: 0 Vitamin D3 1 tab OTHER DAILY RF: 0 dexamethasone 6 mg tablet 6 mg PO DAILY Qty: 9 RF: 0 ondansetron 4 mg tablet,disintegrating 4 mg PO Q8H PRN (Reason: nausea and vomiting) Qty: 30 RF: 0 Primary Care Provider: Donis Hernandez Referrals: Paul Medina MD [STAFF PHYSICIAN] - Donis Hernandez MD [Primary Care Provider] - Activity Restrictions/Additional Instructions: Use humidifier at home to help with the dry air in your bedroom at night. You can use nasal saline into your nose multiple times a day to help moisten the nasal passage. Disposition Disposition: Home, Self Care Discharge Date/Time: 10/11/21 03:56
== END 2021-10-11 03:56 | disposition home or self-care (01) ==
LOC: ED 03:53
PROVIDERS: Emergency Provider Emergency Medicine; PCP Family Medicine; Visit Provider Emergency Medicine
DX: R04.0 Epistaxis (principal); Z87.891 Personal history of nicotine dependence; R51.9 Headache, unspecified; Z86.16 Personal history of COVID-19; R03.0 Elevated blood-pressure reading, without diagnosis of hypertension
CPT/HCPCS: 99284

== ENCOUNTER 2025-07-12 10:30 | Emergency (ER) | payer MEDICARE, SELFPAY ==
[2025-07-12 10:30] VITALS: BP 178/84; PULSE 114; RESP 15; TEMP 37; O2SAT 97; BMI 36.1
[2025-07-12 10:34] VITALS: PULSE 110
--- NOTE | 2025-07-12 11:11 | RAD_ITS ---
PROCEDURE: CHEST 1 VIEW (PORTABLE) 07/12/2025 REASON FOR EXAM: CHEST PAIN TECHNIQUE: Frontal view of the chest. COMPARISON: None FINDINGS: Hardware: EKG leads Heart: The heart is normal. Aorta is atherosclerotic. Lungs: The lungs are clear. Bones: The bones are unremarkable. RAD/Chest 1 View (Portable) IMPRESSION: No acute cardiopulmonary process Reading Location: [id number]
--- NOTE | 2025-07-12 11:11 | EKG12_ITS ---
Test Reason : CHEST OTHER Blood Pressure : */* mmHG Vent. Rate : 104 BPM Atrial Rate : 104 BPM P-R Int : 142 ms QRS Dur : 78 ms QT Int : 352 ms P-R-T Axes : 54 55 10 degrees QTcB Int : 462 ms Sinus tachycardia Nonspecific ST abnormality Abnormal ECG Confirmed by SARAH CAZARES, MADAN ([id number]), manuscript editor DILLON POLLOCK ([id number]) on 07/15/2025 9:16:26 AM Referred By: Confirmed By: MADAN SMITH MD
--- NOTE | 2025-07-12 11:14 | EDS_ITS ---
HPI History of Present Illness Chief Complaint: Chest Other Narrative Narrative: Pt is a 70-year-old female who is presenting to the ER with chief complaint of anxiety, stress, intermittent palpitations going on for months. Patient has a cousin who has been dealing with cancer type diagnoses. Patient has a brother who has angiomas and was flown by [employer] from [facility] this week to [place]. Daughter is at bedside. Patient saw a new PCP today, and was sent to the ER for evaluation for palpitations. Patient has not seen a physician in 3 to 4 years. Patient did have a history of high cholesterol and blood pressure, she has not taken any medication in 3 to 4 years. Patient is a smoker. Patient has a longstanding history of smoking, quit 6 years ago. Patient was 1-2 pack-a-day smoker for 50 years. Patient went to see her PCP today to get help with stress anxiety. Patient was having some chest tightness and patient was sent to the ER by PCP. Patient has no recent heavy lifting, twisting or turning. Patient has no recent travel. No thyroid history. Will riddle 5 to 10 years ago was taking an Ativan intermittently to help with her anxiety which helped. Patient was told that she may likely get a prescription for hydroxyzine but not Ativan, but most likely needs a daily medication to help with anxiolytics which a possible dopamine agonist versus SSRI. REVIEW OF SYSTEMS: Unless otherwise stated in this report the patient's positive and negative responses for review of systems for constitutional, eyes, ENT, cardiovascular, respiratory, gastrointestinal, neurological, , musculoskeletal, and integument systems and related systems to the presenting problem are either stated in the history of present illness or were not pertinent or were negative for the symptoms and/or complaints related to the presenting medical problem. Nurse's notes and vital signs reviewed. The patient is not hypoxic. Vital signs reviewed and patient is not hypoxic. General: The patient appears well and in no apparent distress. Patient is resting comfortably on cart. Not toxic, lethargic, or listless. Skin: Warm, dry, no pallor noted. There is no rash noted. Head: Normocephalic, atraumatic Eye: Normal conjunctiva, no drainage, EOMI. PERRL. Ears, Nose, Mouth, and Throat: oral mucosa is moist. Nares patent. Mouth without vesicles. Cardiovascular: Regular Rate and Rhythm, no murmurs, gallops, or rubs. Patient has no reproducible tenderness to palpation to bilateral anterior, lateral, posterior chest wall. Respiratory: Patient is in no distress, no accessory muscle use, lungs are clear to auscultation, no wheezing, rales or rhonchi Back: non-tender, no CVA tenderness bilaterally to percussion. NO CTLS midline or paraspinal tenderness to palpation. GI: Soft, no tenderness to palpation, no masses appreciated. No rebound, guarding, or rigidity noted. Musculoskeletal: The patient has full range of motion of all extremities and joints with no difficulty. Patient has no motor, no sensory deficits. Neurological: A&O x4, normal speech, no focal neurological deficits. Psychiatric: Cooperative, not suicidal homicidal, mildly anxious, slightly tachycardic initially. Not hallucinating, delusional. PFSH [facility] Medical History Anxiety COVID-19 Home Medications ?Medication ?Instructions ?Recorded ?Last Taken ?Type Vitamin D3 1 tab OTHER DAILY covid 08/2809/24/21 History multivitamin 1 tab PO DAILY supplement Unknown History zinc 22 mg tablet 22 mg PO DAILY supplement 09/24/21 History dexamethasone 6 mg tablet 6 mg PO DAILY #9 tabs Unknown Rx ondansetron 4 mg disintegrating 4 mg PO Q8H PRN nausea and 09/27/21 Unknown Rx tablet vomiting #30 tabs hydroxyzine pamoate 25 mg capsule 50 mg (2 x 25 mg) PO TID PRN PRN 07/12/25 Unknown Rx Anxiety #10 CAPSULES Allergy/AdvReac Type Severity Reaction Status Date / Time nickel Allergy Rash Verified 09/25/21 11:46 Social History Smoking Status: Former smoker EXAM Physical Exam Const Vital Signs: 07/12/25 10:30 07/12/25 10:34 07/12/25 12:02 Temperature 98.6 F Temperature Source Oral Pulse Rate 114 H 110 H 98 Respiratory Rate 15 16 Blood Pressure 178/84 H 161/75 H Blood Pressure Mean 115 103 Pulse Ox 97 99 Oxygen Delivery Method Room Air Room Air 07/12/25 12:35 07/12/25 13:33 Temperature 97.8 F Temperature Source Pulse Rate 92 92 Respiratory Rate 13 13 Blood Pressure 145/69 H 145/69 H Blood Pressure Mean 94 94 Pulse Ox 99 99 Oxygen Delivery Method Room Air MDM MDM MDM Narrative Medical decision making narrative: Patient seen and examined: IV, EKG, x-ray, labs, IV Ativan to help with situation and anxiety. Patient asked if I would do a thyroid study which her PCP was going to do, this was added on. Differential diagnosis includes but is not limited to: Anxiety, chest pain, electrolyte abnormality, thyroid etiology, gastritis, dehydration, pneumonia Relevant laboratory interpretation: None Radiological studies: No acute cardiopulmonary disease, infiltrate, effusion. This was interpreted by Dr. Tellez Reevaluation: Patient felt much better after IV fluids and IV Ativan. Social barriers to healthcare: There are no food insecurities, there is no issue with transportation, there are no insurance barriers Disposition: Patient was sent home with a short prescription for Vistaril. Patient is to follow-up with PCP for daily treatment for anxiety and additional outpatient test as needed. Patient has never had a stress test or echocardiogram. Patient said that her PCP was talking about doing this as an outpatient in the next week or 2. Lab Data Attestation: I reviewed the patient's lab results. Labs: Laboratory Results - last 24 hr 07/12/25 10:48 WBC 7.1 RBC 5.15 Hgb 14.9 Hct 44.6 MCV 86.6 MCH 28.9 MCHC 33.4 RDW Std Deviation 39.2 RDW Coeff of Kristopher 12.3 Plt Count 310 MPV 9.2 Immature Gran % (Auto) 0.400 Neut % (Auto) 67.5 Lymph % (Auto) 20.1 [place] % (Auto) 10.3 H Eos % (Auto) 1.0 Baso % (Auto) 0.7 Absolute Neuts (auto) 4.8 Absolute Lymphs (auto) 1.43 Nucleated RBC % 0 Sodium 135 Potassium 4.2 Chloride 100 Carbon Dioxide 22.8 Anion Gap 13 BUN 11 Creatinine 0.67 L Estim Creat Clear Calc 72.27 Est GFR (MDRD) Non-Af 93 BUN/Creatinine Ratio 15.6 Glucose 114 H Calcium 9.2 Troponin T High Sens 6 TSH 1.060 Radiography Chest X-Ray - ED: Read by ED Physician (Chest x-ray shows no acute cardiopulmonary disease, no infiltrate, no effusion.) Diagnostic Testing: Clinical Impression(s) from Imaging Studies Chest X-Ray 07/12/25 11:11 IMPRESSION: No acute cardiopulmonary process Reading Location: [facility] EKG Initial EKG: Attestation: I personally reviewed and interpreted this EKG as follows: (EKG interpretation. Sinus tachycardia at 104. Normal axis deviation. No acute ST elevation, no acute ectopy. QTC of 460) Discharge Plan Triage Chief Complaint: Chest Other ED Provider: Nestor Tellez Dx/Rx/DC Orders Clinical Impression: Chest tightness, Anxiety Instructions: Anxiety Disorders Tx, ED Chest Pain, Uncertain Cause Prescriptions: New hydroxyzine pamoate 25 mg capsule 50 mg PO TID PRN PRN (Reason: Anxiety) Qty: 10 0RF No Action multivitamin Tablet 1 tab PO DAILY zinc 22 mg Tablet 22 mg PO DAILY Vitamin D3 1 tab OTHER DAILY Patient Comments: pt taking this for covid treatment. unsure of dose dexamethasone 6 mg tablet 6 mg PO DAILY Qty: 9 0RF ondansetron 4 mg tablet,disintegrating 4 mg PO Q8H PRN (Reason: nausea and vomiting) Qty: 30 0RF Primary Care Provider: Yanet Vidal Referrals: Yanet Vidal MD [Primary Care Provider, Family Practice] Activity Restrictions/Additional Instructions: Use hydroxyzine if needed to help with stress, anxiety, insomnia. Call back to your PCP to make a follow-up appointment for daily anxiolytic treatment and other testing and medications as needed. Print Language: Kittitian Disposition Disposition: Home, Self Care Discharge Date/Time: 07/12/25 13:34
[2025-07-12 11:19] LABS: Hematocrit 44.6 % (37-47); Hemoglobin 14.9 g/dL (12.0-15.0); Immature Granulocytes Count 0.030 X10^3/uL (0.0-0.0); Mean Corp Hgb Conc 33.4 g/dL (32-36); Mean Corpuscular Volume 86.6 fL (81-99); Mean Platelet Vol. 9.2 fl (6.2-12.0); NRBC Flagged by Analyzer 0 % (0-5); Platelet Count 310 K/mm3 (150-450); RBC Distribution Width CV 12.3 % (11.6-14.6); RBC Distribution Width SD 39.2 fl (35.1-43.9); Red Blood Count 5.15 M/mm3 (4.2-5.4); White Blood Count 7.1 K/mm3 (4.4-11.0)
--- OUTSIDE RECORDS SUMMARY | 2025-07-12 11:42 | XMS RPT_ITS | CCD ---
Author Organization [facility] Inform ion Partnership [facility] Care Team Providers Care Billposting Supervisor Name Role Phone Shawanda Coleman MD Primary Care Provider [phone] Shawanda Coleman MD Primary Care Provider Antonina MOHAMUD.Silvana SOTO Unavailable Allergies Allergy Classification Reported Allergen(s) Allergy Type Date of Onset Reaction(s) Facility (3 sources) Seasonal allergy Allergy to substance 02-26-2015 Itching [facility] Problems Problem Classification Problem Date Documented Da te Episodic/Chronic Anxiety disorders (3 sources) Anxiety state; Translations: [Generalized anxiety disorder] Onset: 05-31-2008 11-25-2021 Chronic Disorders of lipid metabolism (3 sources) Hyperlipidemia; Translations: [Hyperlipidemia, unspecified] Onset: 05-31-2008 05-31-2008 Chronic Other lower respiratory disease (1 source) H/O: pneumonia; Translations: [Personal history of pneumonia (recurrent)] 11-02-2021 Episodic Other screening for suspected conditions (not mental disorders or infectious disease) (2 sources) Patient encounter status; Translations: [Encounter for screening mammogram for malignant neoplasm of breast] Episodic Results Test Name Value Interpretation Reference Range Facility XR Chest PA and Lateralon IMPRESSION: No acute radiographic abnormality. Data Entry Representative: [facility] Transcribe Date/Time: Nov 02 2021 12:00P Dictated by : DIMPLE SANABRIA MD This examination was interpreted and the report reviewed and electronically signed by: DIMPLE SANABRIA MD on Nov 02 2021 12:01PM [facility] DIVISION OF RADIOLOGY * * *Final Report* * * DATE OF EXAM: Nov 02 2021 11:50AM WOX 5291 - XR CHEST 2V FRONTAL/LAT / PROCEDURE REASON: History of pneumonia * * * * Physician Interpretation * * * * EXAMINATION: CHEST RADIOGRAPH (2 VIEW FRONTAL & LATERAL) CLINICAL HISTORY: History of pneumonia MQ: XC2_6 EXAM DATE/TIME: 11/02/2021 11:50 AM COMPARISON: Chest x-ray on 06/25/2013 is not available for comparison. RESULT: Lines, tubes, and devices: None. Lungs and pleura: No consolidation. No lung mass. No pleural effusion. No pneumothorax. Cardiomediastinal silhouette: Normal cardiomediastinal silhouette. Bones and soft tissues: There are degenerative changes in the spine. DIVISION OF RADIOLOGY Provider, [facility] - 11/02/2021 * * *Final Report* * * DATE OF EXAM: Nov 02 2021 11:50AM WOX 5291 - XR CHEST 2V FRONTAL/LAT / PROCEDURE REASON: History of pneumonia * * * * Physician Interpretation * * * * EXAMINATION: CHEST RADIOGRAPH (2 VIEW FRONTAL & LATERAL) CLINICAL HISTORY: History of pneumonia MQ: XC2_6 EXAM DATE/TIME: 11/02/2021 11:50 AM COMPARISON: Chest x-ray on 06/25/2013 is not available for comparison. RESULT: Lines, tubes, and devices: None. Lungs and pleura: No consolidation. No lung mass. No pleural effusion. No pneumothorax. Cardiomediastinal silhouette: Normal cardiomediastinal silhouette. Bones and soft tissues: There are degenerative changes in the spine. IMPRESSION IMPRESSION: No acute radiographic abnormality. Data Entry [facility] Transcribe Date/Time: Nov 02 2021 12:00P Dictated by : DIMPLE SANABRIA MD This examination was interpreted and the report reviewed and electronically signed by: DIMPLE SANABRIA MD on Nov 02 2021 12:01PM EST [facility] Radiology Study observation (narrative) [facility] XR Chest PA and LateralOrder ed By: [facility] Provider on 11-02-2021 [facility] Emergency Department Summary on 10-11-2021 Emergency Department Summary [facility] Medical Records Department [address] [place] [address] Emergency Department Summary 10/11/21 MR#: [id number] Acct: [id number] Name: ZULMA WONG Rep #: [id number] : [id number] 66 From: Jessica Bah DO PCP: Dr. Shawanda Coleman MD Status:DEP ER Location: ED HPI History of Present Illness Chief Complaint: Nosebleed Informant: patient Narrative Narrative: Patient is a 66-year-old female presenting for epistaxis and hypertension. Patient states she woke up from sleep to use the restroom. She felt that her nose was running and when she went to the bathroom she knows it was bleeding. She states was bleeding quite quickly from the right side. She started to get panicked she is never had a nosebleed before. She was worried that she could have something more severe going on and she called 911. She was found to be hypotensive for EMS which is why she decided to come to the emergency room as the bleeding had stopped by the time EMS arrived. Patient has had a mild headache. Patient did recently have COVID-19 and was hospitalized for short time. Patient was hospitalized from 09/25-09/27 for acute hypoxic respiratory failure associated with COVID-19 infection. She was discharged on a course of Decadron. Patient states she just recently finished the Decadron. She notes that while she was on oxygen in the hospital she did not use the minified oxygen because of the sound of the bubbling reminded her to much of her who from lung cancer. She also notes the cold air lately has been burning her nose. She denies any significant blowing of her nose or trauma to her nose. She is not on any blood thinners. She did receive subcu Lovenox for DVT prophylaxis while in the hospital. Patient denies associated chest pain, shortness of breath, dizziness, lightheadedness or any other complaints. She denies any history of hypertension. She states overall she is starting to feel better from her recent infection. [facility] Medical History Anxiety COVID-19 Home Medications Vitamin D3 1 tab OTHER DAILY 09/25/21 [History Last Taken 09/24/21] multivitamin 1 tab PO DAILY 09/25/21 [History Last Taken Unknown] zinc 22 mg PO DAILY 09/25/21 [History Last Taken 09/24/21] dexamethasone 6 mg PO DAILY #9 tab 09/27/21 [Rx Last Taken Unknown] ondansetron 4 mg PO Q8H PRN #30 tab 09/27/21 [Rx Last Taken Unknown] Allergy/AdvReac Type Severity Reaction Status Date / Time nickel Allergy Rash Verified 09/25/21 11:46 Social History Smoking Status: Former smoker ROS ROS ED Constitutional Constitutional ED: Denies chills or fever(s) Eyes Eyes: Denies change in vision ENT ENT ED: Reports other Details: Epistaxis ; Denies ear pain or rhinorrhea Cardiovascular Cardiovascular: Denies chest pain Respiratory/Chest Respiratory/Chest: Denies dyspnea Gastrointestinal Gastrointestinal: Denies abdominal pain, nausea or vomiting Musculoskeletal Musculoskeletal: Reports other; Denies arthralgias or myalgias Integumentary Denies rash Neurologic Neurologic: Reports headache(s); Denies paresthesias or weakness Psychiatric Psychiatric: Reports anxiety; Denies depression EXAM Physical Exam Const Vital Signs: 10/11/21 03:05 10/11/21 03:32 Temperature 97.6 F L Temperature Source Oral Pulse Rate 103 H 78 Respiratory Rate 16 17 Blood Pressure 170/82 H 142/72 H Blood Pressure Mean 111 95 Pulse Ox 97 98 Oxygen Delivery Method Room Air Room Air Positive well nourished and well developed General Appearance ED: well developed HEENT Reports TM's clear and moist mucous membranes HEENT Narrative: Dried blood noted in the right nares with no active bleeding. There does seem to be an area that showed signs of prior bleeding of the anterior right nasal septum. Negative for trauma or tenderness Tympanic Membrane ED: Yes TM's clear Eyes PERRL and EOMs intact bilaterally Neck supple Chest Wall inspection of chest normal Resp normal respiratory effort and clear to auscultation bilaterally Cardio regular rate, regular rhythm and no murmurs GI normal to inspection, nondistended, normoactive bowel sounds Extremity normal to inspection General Extremety ED: Negative for edema or tenderness General Extremity: Negative for edema Neuro oriented x3 and CN's II-XII intact bilaterally Sensorium / Orientation: alert Motor Exam: Negative for general weakness Psych mental status grossly normal Mood Affect: anxious Skin no rashes or lesions noted and no wounds MDM MDM MDM Narrative Medical decision making narrative: Patient evaluated after an episode of epistaxis. In addition her blood pressure was elevated. Patient has no furth (more content not included)... Normal [facility] Basic Metabolic Profile (BMP )on 09-30-2021 BUN Normal 7-18 [facility] Comment on above: Result Comment: Canc elled via OM: Order cancelled - Patient discharged Performed By: #### M 300.4500, M300.4600 #### [facility] [address] [place], [address] BUN/CRE Normal 10-20 [facility] Comment on above: Result Comment: Canc elled via OM: Order cancelled - Patient discharged Performed By: #### M 300.4500, M300.4600 #### [facility] [address] [place], [address] CA,Total Normal 8.5-10.1 [facility] Comment on above: Result Comment: Canc elled via OM: Order cancelled - Patient discharged Performed By: #### M 300.4500, M300.4600 #### [facility] [address] [place], [address] CL Normal 98-107 [facility] Comment on above: Result Comment: Canc elled via OM: Order cancelled - Patient discharged Performed By: #### M 300.4500, M300.4600 #### [facility] [address] [place], [address] CO2 Normal 21.0-32.0 [facility] Comment on above: Result Comment: Canc elled via OM: Order cancelled - Patient discharged Performed By: #### M 300.4500, M300.4600 #### [facility] [address] [place], [address] CREAT,SERUM Normal 0.55-1.02 [facility] Comment on above: Result Comment: Canc elled via OM: Order cancelled - Patient discharged Performed By: #### M 300.4500, M300.4600 #### [facility] [address] [place], [address] EST GFR Normal >60 [facility] Comment on above: Result Comment: Canc elled via OM: Order cancelled - Patient discharged Performed By: #### M 300.4500, M300.4600 #### [facility] [address] [place], [address] EST GFR - AA Normal >60 [facility] Comment on above: Result Comment: Canc elled via OM: Order cancelled - Patient discharged Performed By: #### M 300.4500, M300.4600 #### [facility] [address] [place], [address] GAP Normal 5-15 [facility] Comment on above: Result Comment: Canc elled via OM: Order cancelled - Patient discharged Performed By: #### M 300.4500, M300.4600 #### [facility] [address] [place], [address] GLU Normal 74-106 [facility] Comment on above: Result Comment: Canc elled via OM: Order cancelled - Patient discharged Performed By: #### M 300.4500, M300.4600 #### [facility] [address] [place], [address] Potassium Normal 3.5-5.1 [facility] Comment on above: Result Comment: Canc elled via OM: Order cancelled - Patient discharged Performed By: #### M 300.4500, M300.4600 #### [facility] [address] [place], [address] Basic Metabolic Profile (BMP) Normal 136-145 [facility] Comment on above: Result Comment: Canc elled via OM: Order cancelled - Patient discharged Performed By: #### M 300.4500, M300.4600 #### [facility] [address] [place], [address] CBC W/Diff, Automatedon 01-0 -2021 Absolute Neut Normal 2.0-7.7 [facility] Comment on above: Result Comment: Canc elled via OM: Order cancelled - Patient discharged Performed By: #### M 300.4500, M300.4600 #### [facility] [address] [place], [address] HCT Normal 37-47 [facility] Comment on above: Result Comment: Canc elled via OM: Order cancelled - Patient discharged Performed By: #### M 300.4500, M300.4600 #### [facility] [address] [place], [address] HGB Normal 12.0-15.0 [facility] Comment on above: Result Comment: Canc elled via OM: Order cancelled - Patient discharged Performed By: #### M 300.4500, M300.4600 #### [facility] [address] [place], [address] MCH Normal 27.0-32.0 [facility] Comment on above: Result Comment: Canc elled via OM: Order cancelled - Patient discharged Performed By: #### M 300.4500, M300.4600 #### [facility] [address] [place], [address] MCHC Normal 32-36 [facility] Comment on above: Result Comment: Canc elled via OM: Order cancelled - Patient discharged Performed By: #### M 300.4500, M300.4600 #### [facility] [address] [place], [address] MCV Normal 81-99 [facility] Comment on above: Result Comment: Canc elled via OM: Order cancelled - Patient discharged Performed By: #### M 300.4500, M300.4600 #### [facility] [address] [place], [address] NEUT% Normal 47-70 [facility] Comment on above: Result Comment: Canc elled via OM: Order cancelled - Patient discharged Performed By: #### M 300.4500, M300.4600 #### [facility] [address] [place], [address] PLT Normal 150-450 [facility] Comment on above: Result Comment: Canc elled via OM: Order cancelled - Patient discharged Performed By: #### M 300.4500, M300.4600 #### [facility] [address] [place], [address] RBC Normal 4.2-5.4 [facility] Comment on above: Result Comment: Canc elled via OM: Order cancelled - Patient discharged Performed By: #### M 300.4500, M300.4600 #### [facility] [address] [place], [address] RDW CV Normal 11.6-14.6 [facility] Comment on above: Result Comment: Canc elled via OM: Order cancelled - Patient discharged Performed By: #### M 300.4500, M300.4600 #### [facility] [address] [place], [address] RDW SD Normal 35.1-43.9 [facility] Comment on above: Result Comment: Canc elled via OM: Order cancelled - Patient discharged Performed By: #### M 300.4500, M300.4600 #### [facility] [address] [place], [address] WBC Normal 4.4-11.0 [facility] Comment on above: Result Comment: Canc elled via OM: Order cancelled - Patient discharged Performed By: #### M 300.4500, M300.4600 #### [facility] [address] [place], [address] Culture, Blood (WB)on 2021 CUB No growth in 5 days. Normal [facility] Comment on above: Performed By: #### M 200.1000 #### [facility] [address] [place], [address] CUB No growth in 5 days. Normal [facility] Comment on above: Performed By: #### M 200.1000 #### [facility] [address] [place], [address] Basic Metabolic Profile (BMP )on 09-29-2021 BUN Normal 7-18 [facility] Comment on above: Result Comment: Canc elled via OM: Order cancelled - Patient discharged Performed By: #### M 200.1000 #### [facility] [address] [place], [address] BUN/CRE Normal 10-20 [facility] Comment on above: Result Comment: Canc elled via OM: Order cancelled - Patient discharged Performed By: #### M 200.1000 #### [facility] [address] [place], [address] CA,Total Normal 8.5-10.1 [facility] Comment on above: Result Comment: Canc elled via OM: Order cancelled - Patient discharged Performed By: #### M 200.1000 #### [facility] [address] [place], [address] CL Normal 98-107 [facility] Comment on above: Result Comment: Canc elled via OM: Order cancelled - Patient discharged Performed By: #### M 200.1000 #### [facility] [address] [place], [address] CO2 Normal 21.0-32.0 [facility] Comment on above: Result Comment: Canc elled via OM: Order cancelled - Patient discharged Performed By: #### M 200.1000 #### [facility] [address] [place], [address] CREAT,SERUM Normal 0.55-1.02 [facility] Comment on above: Result Comment: Canc elled via OM: Order cancelled - Patient discharged Performed By: #### M 200.1000 #### [facility] [address] [place], [address] EST GFR Normal >60 [facility] Comment on above: Result Comment: Canc elled via OM: Order cancelled - Patient discharged Performed By: #### M 200.1000 #### [facility] [address] [place], [address] EST GFR - AA Normal >60 [facility] Comment on above: Result Comment: Canc elled via OM: Order cancelled - Patient discharged Performed By: #### M 200.1000 #### [facility] [address] [place], [address] GAP Normal 5-15 [facility] Comment on above: Result Comment: Canc elled via OM: Order cancelled - Patient discharged Performed By: #### M 200.1000 #### [facility] [address] [place], [address] GLU Normal 74-106 [facility] Comment on above: Result Comment: Canc elled via OM: Order cancelled - Patient discharged Performed By: #### M 200.1000 #### [facility] [address] [place], [address] Potassium Normal 3.5-5.1 [facility] Comment on above: Result Comment: Canc elled via OM: Order cancelled - Patient discharged Performed By: #### M 200.1000 #### [facility] [address] [place], [address] Basic Metabolic Profile (BMP) Normal 136-145 [facility] Comment on above: Result Comment: Canc elled via OM: Order cancelled - Patient discharged Performed By: #### M 200.1000 #### [facility] [address] [place], [address] CBC W/Diff, Automatedon 01-0 Absolute Neut Normal 2.0-7.7 [facility] Comment on above: Result Comment: Canc elled via OM: Order cancelled - Patient discharged Performed By: #### M 200.1000 #### [facility] [address] [place], [address] HCT Normal 37-47 [facility] Comment on above: Result Comment: Canc elled via OM: Order cancelled - Patient discharged Performed By: #### M 200.1000 #### [facility] [address] [place], [address] HGB Normal 12.0-15.0 [facility] Comment on above: Result Comment: Canc elled via OM: Order cancelled - Patient discharged Performed By: #### M 200.1000 #### [facility] [address] [place], [address] MCH Normal 27.0-32.0 [facility] Comment on above: Result Comment: Canc elled via OM: Order cancelled - Patient discharged Performed By: #### M 200.1000 #### [facility] [address] [place], [address] MCHC Normal 32-36 [facility] Comment on above: Result Comment: Canc elled via OM: Order cancelled - Patient discharged Performed By: #### M 200.1000 #### [facility] [address] [place], [address] MCV Normal 81-99 [facility] Comment on above: Result Comment: Canc elled via OM: Order cancelled - Patient discharged Performed By: #### M 200.1000 #### [facility] [address] [place], [address] NEUT% Normal 47-70 [facility] Comment on above: Result Comment: Canc elled via OM: Order cancelled - Patient discharged Performed By: #### M 200.1000 #### [facility] [address] [place], [address] PLT Normal 150-450 [facility] Comment on above: Result Comment: Canc elled via OM: Order cancelled - Patient discharged Performed By: #### M 200.1000 #### [facility] [address] [place], [address] RBC Normal 4.2-5.4 [facility] Comment on above: Result Comment: Canc elled via OM: Order cancelled - Patient discharged Performed By: #### M 200.1000 #### [facility] [address] [place], [address] RDW CV Normal 11.6-14.6 [facility] Comment on above: Result Comment: Canc elled via OM: Order cancelled - Patient discharged Performed By: #### M 200.1000 #### [facility] [address] [place], [address] RDW SD Normal 35.1-43.9 [facility] Comment on above: Result Comment: Canc elled via OM: Order cancelled - Patient discharged Performed By: #### M 200.1000 #### [facility] [address] [place], [address] WBC Normal 4.4-11.0 [facility] Comment on above: Result Comment: Canc elled via OM: Order cancelled - Patient discharged Performed By: #### M 200.1000 #### [facility] [address] [place], [address] Basic Metabolic Profile (BMP )on 09-28-2021 BUN Normal 7-18 [facility] Comment on above: Result Comment: Canc elled via OM: Order cancelled - Patient discharged Performed By: #### M 300.4500, M300.4600 #### [facility] [address] [place], [address] BUN/CRE Normal 10-20 [facility] Comment on above: Result Comment: Canc elled via OM: Order cancelled - Patient discharged Performed By: #### M 300.4500, M300.4600 #### [facility] [address] [place], [address] CA,Total Normal 8.5-10.1 [facility] Comment on above: Result Comment: Canc elled via OM: Order cancelled - Patient discharged Performed By: #### M 300.4500, M300.4600 #### [facility] [address] [place], [address] CL Normal 98-107 [facility] Comment on above: Result Comment: Canc elled via OM: Order cancelled - Patient discharged Performed By: #### M 300.4500, M300.4600 #### [facility] [address] [place], [address] CO2 Normal 21.0-32.0 [facility] Comment on above: Result Comment: Canc elled via OM: Order cancelled - Patient discharged Performed By: #### M 300.4500, M300.4600 #### [facility] [address] [place], [address] CREAT,SERUM Normal 0.55-1.02 [facility] Comment on above: Result Comment: Canc elled via OM: Order cancelled - Patient discharged Performed By: #### M 300.4500, M300.4600 #### [facility] [address] [place], [address] EST GFR Normal >60 [facility] Comment on above: Result Comment: Canc elled via OM: Order cancelled - Patient discharged Performed By: #### M 300.4500, M300.4600 #### [facility] [address] [place], [address] EST GFR - AA Normal >60 [facility] Comment on above: Result Comment: Canc elled via OM: Order cancelled - Patient discharged Performed By: #### M 300.4500, M300.4600 #### [facility] [address] [place], [address] GAP Normal 5-15 [facility] Comment on above: Result Comment: Canc elled via OM: Order cancelled - Patient discharged Performed By: #### M 300.4500, M300.4600 #### [facility] [address] [place], [address] GLU Normal 74-106 [facility] Comment on above: Result Comment: Canc elled via OM: Order cancelled - Patient discharged Performed By: #### M 300.4500, M300.4600 #### [facility] [address] [place], [address] Potassium Normal 3.5-5.1 [facility] Comment on above: Result Comment: Canc elled via OM: Order cancelled - Patient discharged Performed By: #### M 300.4500, M300.4600 #### [facility] [address] [place], [address] Basic Metabolic Profile (BMP) Normal 136-145 [facility] Comment on above: Result Comment: Canc elled via OM: Order cancelled - Patient discharged Performed By: #### M 300.4500, M300.4600 #### [facility] [address] [place], [address] CBC W/Diff, Automatedon 01-0 Absolute Neut Normal 2.0-7.7 [facility] Comment on above: Result Comment: Canc elled via OM: Order cancelled - Patient discharged Performed By: #### M 300.4500, M300.4600 #### [facility] [address] [place], [address] HCT Normal 37-47 [facility] Comment on above: Result Comment: Canc elled via OM: Order cancelled - Patient discharged Performed By: #### M 300.4500, M300.4600 #### [facility] [address] [place], [address] HGB Normal 12.0-15.0 [facility] Comment on above: Result Comment: Canc elled via OM: Order cancelled - Patient discharged Performed By: #### M 300.4500, M300.4600 #### [facility] [address] [place], [address] MCH Normal 27.0-32.0 [facility] Comment on above: Result Comment: Canc elled via OM: Order cancelled - Patient discharged Performed By: #### M 300.4500, M300.4600 #### [facility] [address] [place], [address] MCHC Normal 32-36 [facility] Comment on above: Result Comment: Canc elled via OM: Order cancelled - Patient discharged Performed By: #### M 300.4500, M300.4600 #### [facility] [address] [place], [address] MCV Normal 81-99 [facility] Comment on above: Result Comment: Canc elled via OM: Order cancelled - Patient discharged Performed By: #### M 300.4500, M300.4600 #### [facility] [address] [place], [address] NEUT% Normal 47-70 [facility] Comment on above: Result Comment: Canc elled via OM: Order cancelled - Patient discharged Performed By: #### M 300.4500, M300.4600 #### [facility] [address] [place], [address] PLT Normal 150-450 [facility] Comment on above: Result Comment: Canc elled via OM: Order cancelled - Patient discharged Performed By: #### M 300.4500, M300.4600 #### [facility] [address] [place], [address] RBC Normal 4.2-5.4 [facility] Comment on above: Result Comment: Canc elled via OM: Order cancelled - Patient discharged Performed By: #### M 300.4500, M300.4600 #### [facility] [address] [place], [address] RDW CV Normal 11.6-14.6 [facility] Comment on above: Result Comment: Canc elled via OM: Order cancelled - Patient discharged Performed By: #### M 300.4500, M300.4600 #### [facility] [address] [place], [address] RDW SD Normal 35.1-43.9 [facility] Comment on above: Result Comment: Canc elled via OM: Order cancelled - Patient discharged Performed By: #### M 300.4500, M300.4600 #### [facility] [address] [place], [address] WBC Normal 4.4-11.0 [facility] Comment on above: Result Comment: Canc elled via OM: Order cancelled - Patient discharged Performed By: #### M 300.4500, M300.4600 #### [facility] [address] [place], [address] Respiratory Cultureon 2021 RESPC Mixed normal respiratory nallely. No Haemophilus, Streptococcus pneumoniae, beta-hemolytic Streptococcus or Staphylococcus aureus isolated. Normal [facility] Comment on above: Performed By: #### M 100.2400, M100.2000 #### [facility] [address] [place], [address] Basic Metabolic Profile (BMP )on 09-27-2021 BUN/CRE 31.7 RATIO High 10-20 [facility] Comment on above: Performed By: #### M 200.1000 #### [facility] [address] [place], [address] CA,Total 8.6 mg/dL Normal 8.5-10.1 [facility] Comment on above: Performed By: #### M 200.1000 #### [facility] [address] [place], [address] Chloride [Moles/Vol] 107 mmol/L Normal 98-107 [facility] Comment on above: Performed By: #### M 200.1000 #### [facility] [address] [place], [address] CO2 [Moles/Vol] 26.0 mmol/L Normal 21.0-32.0 [facility] Comment on above: Performed By: #### M 200.1000 #### [facility] [address] [place], [address] Creatinine [Mass/Vol] 0.63 mg/dL Normal 0.55-1.02 [facility] Comment on above: Result Comment: The validity of the calculated GFR GFRAA in patients over 70 years has not been determined. Clinical correlation is essential. Performed By: #### M 200.1000 #### [facility] [address] [place], [address] ECRCL 47.14 ml/min Normal [facility] Comment on above: Performed By: #### M 200.1000 #### [facility] [address] [place], [address] EST GFR - AA 121 mL/min Normal >60 [facility] Comment on above: Result Comment: Afri can Tongan GFR Calc Performed By: #### M 200.1000 #### [facility] [address] [place], [address] GAP 6 Normal 5-15 [facility] Comment on above: Performed By: #### M 200.1000 #### [facility] [address] [place], [address] GFR/1.73 sq M.predicted among non-blacks MDRD (S/P/Bld) [Vol rate/Area] 100 mL/min/{1.73_m2} Normal >60 [facility] Comment on above: Result Comment: Non- GFR Calc Performed By: #### M 200.1000 #### [facility] [address] [place], [address] Glucose [Mass/Vol] 93 mg/dL Normal 74-106 [facility] Comment on above: Result Comment: Orestes myers note revised GLUCOSE reference range effective 2017. Performed By: #### M 200.1000 #### [facility] [address] [place], [address] Potassium [Moles/Vol] 3.7 mmol/L Normal 3.5-5.1 [facility] Comment on above: Performed By: #### M 200.1000 #### [facility] [address] [place], [address] Sodium [Moles/Vol] 139 mmol/L Normal 136-145 [facility] Comment on above: Performed By: #### M 200.1000 #### [facility] [address] [place], [address] Urea nitrogen [Mass/Vol] 20 mg/dL High 7-18 [facility] Comment on above: Performed By: #### M 200.1000 #### [facility] [address] [place], [address] CBC W/Diff, Automatedon 01-0 -2021 Absolute Lymph 2.05 X10 3/uL Normal 0.83-4.51 [facility] Comment on above: Performed By: #### M 200.1000 #### [facility] [address] [place], [address] Absolute Neut 5.4 X10 3/uL Normal 2.0-7.7 [facility] Comment on above: Performed By: #### M 200.1000 #### [facility] [address] [place], [address] Basophils/100 WBC (Bld) 0.2 % Normal 0-1 [facility] Comment on above: Performed By: #### M 200.1000 #### [facility] [address] [place], [address] Eosinophils/100 WBC (Bld) 0.2 % Normal 0-5 [facility] Comment on above: Performed By: #### M 200.1000 #### [facility] [address] [place], [address] Erythrocyte distribution width (RBC) [Ratio] 13.2 % Normal 11.6-14.6 [facility] Comment on above: Performed By: #### M 200.1000 #### [facility] [address] [place], [address] Hematocrit (Bld) [Volume fraction] 39.3 % Normal 37-47 [facility] Comment on above: Performed By: #### M 200.1000 #### [facility] [address] [place], [address] Hemoglobin (Bld) [Mass/Vol] 12.5 g/dL Normal 12.0-15.0 [facility] Comment on above: Performed By: #### M 200.1000 #### [facility] [address] [place], [address] IG% 0.900 Normal 0.0-0.9 [facility] Comment on above: Result Comment: IG% - Immature Granulocytes (promyelocytes, myelocytes and metamyelocytes) > 1% indicates that a LEFT SHIFT is Present. Performed By: #### M 200.1000 #### [facility] [address] [place], [address] Lymphocytes/100 WBC (Bld) 23.5 % Normal 19-41 [facility] Comment on above: Performed By: #### M 200.1000 #### [facility] [address] [place], [address] MCH (RBC) [Entitic mass] 28.3 pg Normal 27.0-32.0 [facility] Comment on above: Performed By: #### M 200.1000 #### [facility] [address] [place], [address] MCHC (RBC) [Mass/Vol] 31.8 g/dL Low 32-36 [facility] Comment on above: Performed By: #### M 200.1000 #### [facility] [address] [place], [address] MCV (RBC) [Entitic vol] 89.1 fL Normal 81-99 [facility] Comment on above: Performed By: #### M 200.1000 #### [facility] [address] [place], [address] Monocytes/100 WBC (Bld) 13.2 % High 0-10 [facility] Comment on above: Performed By: #### M 200.1000 #### [facility] [address] [place], [address] Neutrophils/100 WBC (Bld) 62.0 % Normal 47-70 [facility] Comment on above: Performed By: #### M 200.1000 #### [facility] [address] [place], [address] Nucleated RBC (Bld) [#/Vol] 0 10*3/uL Normal 0-5 [facility] Comment on above: Performed By: #### M 200.1000 #### [facility] [address] [place], [address] Platelet mean volume (Bld) [Entitic vol] 9.1 fL Normal 6.2-12.0 [facility] Comment on above: Performed By: #### M 200.1000 #### [facility] [address] [place], [address] Platelets (Bld) [#/Vol] 481 10*3/uL High 150-450 [facility] Comment on above: Performed By: #### M 200.1000 #### [facility] [address] [place], [address] RBC (Bld) [#/Vol] 4.41 10*6/uL Normal 4.2-5.4 [facility] Comment on above: Performed By: #### M 200.1000 #### [facility] [address] [place], [address] RDW SD 43.6 fl Normal 35.1-43.9 [facility] Comment on above: Performed By: #### M 200.1000 #### [facility] [address] [place], [address] WBC (Bld) [#/Vol] 8.7 10*3/uL Normal 4.4-11.0 [facility] Comment on above: Performed By: #### M 200.1000 #### [facility] [address] [place], [address] Gram Stainon 09-27-2021 GS Acceptable Specimen? Yes (<25 Epithelial cells per/lpf) Gram Stain 1+ Gram positive cocci 3+ White Blood Cells No Epithelial cells Normal [facility] Comment on above: Performed By: #### M 100.2400, M100.2000 #### [facility] [address] [place], [address] Basic Metabolic Profile (BMP )on 09-26-2021 BUN/CRE 21.7 RATIO High 10-20 [facility] Comment on above: Performed By: #### M 300.4500, M300.4600 #### [facility] [address] [place], [address] CA,Total 8.5 mg/dL Normal 8.5-10.1 [facility] Comment on above: Performed By: #### M 300.4500, M300.4600 #### [facility] [address] [place], [address] Chloride [Moles/Vol] 105 mmol/L Normal 98-107 [facility] Comment on above: Performed By: #### M 300.4500, M300.4600 #### [facility] [address] [place], [address] CO2 [Moles/Vol] 28.0 mmol/L Normal 21.0-32.0 [facility] Comment on above: Performed By: #### M 300.4500, M300.4600 #### [facility] [address] [place], [address] Creatinine [Mass/Vol] 0.55 mg/dL Normal 0.55-1.02 [facility] Comment on above: Result Comment: The validity of the calculated GFR GFRAA in patients over 70 years has not been determined. Clinical correlation is essential. Performed By: #### M 300.4500, M300.4600 #### [facility] [address] [place], [address] ECRCL 47.14 ml/min Normal [facility] Comment on above: Performed By: #### M 300.4500, M300.4600 #### [facility] [address] [place], [address] EST GFR - AA 141 mL/min Normal >60 [facility] Comment on above: Result Comment: Afri can Tongan GFR Calc Performed By: #### M 300.4500, M300.4600 #### [facility] [address] [place], [address] GAP 8 Normal 5-15 [facility] Comment on above: Performed By: #### M 300.4500, M300.4600 #### [facility] [address] [place], [address] GFR/1.73 sq M.predicted among non-blacks MDRD (S/P/Bld) [Vol rate/Area] 116 mL/min/{1.73_m2} Normal >60 [facility] Comment on above: Result Comment: Non- GFR Calc Performed By: #### M 300.4500, M300.4600 #### [facility] [address] [place], [address] Glucose [Mass/Vol] 113 mg/dL High 74-106 [facility] Comment on above: Result Comment: Fast ing Glucose result from 100 to 125 mg/dL suggests IMPAIRED HOMEOSTASIS per A.D.A. criteria. Please note revised GLUCOSE reference range effective 2017. Performed By: #### M 300.4500, M300.4600 #### [facility] [address] [place], [address] Potassium [Moles/Vol] 3.6 mmol/L Normal 3.5-5.1 [facility] Comment on above: Performed By: #### M 300.4500, M300.4600 #### [facility] [address] [place], [address] Sodium [Moles/Vol] 141 mmol/L Normal 136-145 [facility] Comment on above: Performed By: #### M 300.4500, M300.4600 #### [facility] [address] [place], [address] Urea nitrogen [Mass/Vol] 12 mg/dL Normal 7-18 [facility] Comment on above: Performed By: #### M 300.4500, M300.4600 #### [facility] [address] [place], [address] CBC W/Diff, Automatedon 01-0 -2021 Absolute Lymph 1.68 X10 3/uL Normal 0.83-4.51 [facility] Comment on above: Performed By: #### M 300.4500, M300.4600 #### [facility] [address] [place], [address] Absolute Neut 4.0 X10 3/uL Normal 2.0-7.7 [facility] Comment on above: Performed By: #### M 300.4500, M300.4600 #### [facility] [address] [place], [address] Basophils/100 WBC (Bld) 0.2 % Normal 0-1 [facility] Comment on above: Performed By: #### M 300.4500, M300.4600 #### [facility] [address] [place], [address] Eosinophils/100 WBC (Bld) 0.2 % Normal 0-5 [facility] Comment on above: Performed By: #### M 300.4500, M300.4600 #### [facility] [address] [place], [address] Erythrocyte distribution width (RBC) [Ratio] 13.2 % Normal 11.6-14.6 [facility] Comment on above: Performed By: #### M 300.4500, M300.4600 #### [facility] [address] [place], [address] Hematocrit (Bld) [Volume fraction] 39.7 % Normal 37-47 [facility] Comment on above: Performed By: #### M 300.4500, M300.4600 #### [facility] [address] [place], [address] Hemoglobin (Bld) [Mass/Vol] 12.8 g/dL Normal 12.0-15.0 [facility] Comment on above: Performed By: #### M 300.4500, M300.4600 #### [facility] [address] [place], [address] IG% 0.800 Normal 0.0-0.9 [facility] Comment on above: Result Comment: IG% - Immature Granulocytes (promyelocytes, myelocytes and metamyelocytes) > 1% indicates that a LEFT SHIFT is Present. Performed By: #### M 300.4500, M300.4600 #### [facility] [address] [place], [address] Lymphocytes/100 WBC (Bld) 25.2 % Normal 19-41 [facility] Comment on above: Performed By: #### M 300.4500, M300.4600 #### [facility] [address] [place], [address] MCH (RBC) [Entitic mass] 28.3 pg Normal 27.0-32.0 [facility] Comment on above: Performed By: #### M 300.4500, M300.4600 #### [facility] [address] [place], [address] MCHC (RBC) [Mass/Vol] 32.2 g/dL Normal 32-36 [facility] Comment on above: Performed By: #### M 300.4500, M300.4600 #### [facility] [address] [place], [address] MCV (RBC) [Entitic vol] 87.6 fL Normal 81-99 [facility] Comment on above: Performed By: #### M 300.4500, M300.4600 #### [facility] [address] [place], [address] Monocytes/100 WBC (Bld) 13.5 % High 0-10 [facility] Comment on above: Performed By: #### M 300.4500, M300.4600 #### [facility] [address] [place], [address] Neutrophils/100 WBC (Bld) 60.1 % Normal 47-70 [facility] Comment on above: Performed By: #### M 300.4500, M300.4600 #### [facility] [address] [place], [address] Nucleated RBC (Bld) [#/Vol] 0 10*3/uL Normal 0-5 [facility] Comment on above: Performed By: #### M 300.4500, M300.4600 #### [facility] [address] [place], [address] Platelet mean volume (Bld) [Entitic vol] 9.3 fL Normal 6.2-12.0 [facility] Comment on above: Performed By: #### M 300.4500, M300.4600 #### [facility] [address] [place], [address] Platelets (Bld) [#/Vol] 417 10*3/uL Normal 150-450 [facility] Comment on above: Performed By: #### M 300.4500, M300.4600 #### [facility] [address] [place], [address] RBC (Bld) [#/Vol] 4.53 10*6/uL Normal 4.2-5.4 [facility] Comment on above: Performed By: #### M 300.4500, M300.4600 #### [facility] [address] [place], [address] RDW SD 42.7 fl Normal 35.1-43.9 [facility] Comment on above: Performed By: #### M 300.4500, M300.4600 #### [facility] [address] [place], [address] WBC (Bld) [#/Vol] 6.7 10*3/uL Normal 4.4-11.0 [facility] Comment on above: Performed By: #### M 300.4500, M300.4600 #### [facility] [address] [place], [address] Liver Profileon 09-26-2021 Albumin [Mass/Vol] 2.4 g/dL Low 3.2-5.0 [facility] Comment on above: Performed By: #### L 500.3400 #### [facility] [address] [place], [address] ALK P 178 U/L High 45-117 [facility] Comment on above: Performed By: #### L 500.3400 #### [facility] [address] [place], [address] ALT [Catalytic activity/Vol] 270 U/L High 13-56 [facility] Comment on above: Performed By: #### L 500.3400 #### [facility] [address] [place], [address] AST [Catalytic activity/Vol] 253 U/L High 15-37 [facility] Comment on above: Performed By: #### L 500.3400 #### [facility] [address] [place], [address] Bilirubin [Mass/Vol] 0.50 mg/dL Normal 0.20-1.00 [facility] Comment on above: Result Comment: For patients on eltrombopag therapy, use of Dimension [place] TBIL is not recommended. Performed By: #### L 500.3400 #### [facility] [address] [place], [address] Bilirubin.direct [Mass/Vol] 0.20 mg/dL Normal 0.00-0.30 [facility] Comment on above: Performed By: #### L 500.3400 #### [facility] [address] [place], [place], [address] Globulin (S) [Mass/Vol] 4.3 g/dL High 2.2-4.2 [facility] Comment on above: Performed By: #### L 500.3400 #### [facility] [address] [place], [address] T PROT 6.7 g/dL Normal 6.4-8.2 [facility] Comment on above: Performed By: #### L 500.3400 #### [facility] [address] [place], [id number] 12 Lead EKGon 09-25-2021 12 Lead EKG [facility] [address] [place] [address] 12 Lead EKG 09/25/21 0516 MR#: [id number] Acct: [id number] Name: ZULMA WONG Rep #: [id number] : 1955 66 From: Viktor Powers MD Attending Dr: Dr. Gem Gilliland MD Status: DI S IN Ordering Dr: Jaylyn Moran MD Date: 09/25/21 [place] [facility] [place] F C Admitted: 09/25/21 Test Reason : DYSRHYTHMIA Blood Pressure : / mmHG Vent. Rate : 109 BPM Atrial Rate : 109 BPM P-R Int : 132 ms QRS Dur : 078 ms QT Int : 362 ms P-R-T Axes : 050 045 -02 degrees QTc Int : 487 ms Sinus tachycardia with Premature atrial complexes Nonspecific ST abnormality Abnormal ECG Confirmed by VIKTOR POWERS MD ([id number]), medical editor DILOLN POLLOCK ([id number]) on 09/30/2021 11:02:00 AM Referred By: TODD Confirmed By:VIKTOR POWERS MD 09/30/21 1102 Date Viktor Powers MD CC: Dr. Jaylyn Moran MD; Dr. Shawanda Coleman MD; Dr. Gem Gilliland MD Signed Normal [facility] BNP,B-Type NATRIURETIC PEPTI [place] 09-25-2021 Natriuretic peptide B (Bld) [Mass/Vol] 25.2 pg/mL Normal 0-100 [facility] Comment on above: Performed By: #### L 503.6620, L509.7000 #### [facility] [address] [place], [address] Basic Metabolic Profile (BMP )on 09-25-2021 BUN/CRE 16.2 RATIO Normal 10-20 [facility] Comment on above: Performed By: #### M 300.4500, M300.4600 #### [facility] [address] [place], [address] CA,Total 8.6 mg/dL Normal 8.5-10.1 [facility] Comment on above: Performed By: #### M 300.4500, M300.4600 #### [facility] [address] [place], [address] Chloride [Moles/Vol] 101 mmol/L Normal 98-107 [facility] Comment on above: Performed By: #### M 300.4500, M300.4600 #### [facility] [address] [place], [address] CO2 [Moles/Vol] 24.0 mmol/L Normal 21.0-32.0 [facility] Comment on above: Performed By: #### M 300.4500, M300.4600 #### [facility] [address] [place], [address] Creatinine [Mass/Vol] 0.62 mg/dL Normal 0.55-1.02 [facility] Comment on above: Result Comment: The validity of the calculated GFR GFRAA in patients over 70 years has not been determined. Clinical correlation is essential. Performed By: #### M 300.4500, M300.4600 #### [facility] [address] [place], [address] ECRCL 47.14 ml/min Normal [facility] Comment on above: Performed By: #### M 300.4500, M300.4600 #### [facility] [address] [place], [address] EST GFR - AA 124 mL/min Normal >60 [facility] Comment on above: Result Comment: Afri can Tongan GFR Calc Performed By: #### M 300.4500, M300.4600 #### [facility] [address] [place], [address] GAP 10 Normal 5-15 [facility] Comment on above: Performed By: #### M 300.4500, M300.4600 #### [facility] [address] [place], [address] GFR/1.73 sq M.predicted among non-blacks MDRD (S/P/Bld) [Vol rate/Area] 103 mL/min/{1.73_m2} Normal >60 [facility] Comment on above: Result Comment: Non- GFR Calc Performed By: #### M 300.4500, M300.4600 #### [facility] [address] [place], [address] Glucose [Mass/Vol] 131 mg/dL High 74-106 [facility] Comment on above: Result Comment: Fast ing Glucose result greater than or equal to 126 mg/dL suggests DIABETES MELLITUS per A.D.A. criteria. Please note revised GLUCOSE reference range effective 2017. Performed By: #### M 300.4500, M300.4600 #### [facility] [address] [place], [address] Potassium [Moles/Vol] 3.5 mmol/L Normal 3.5-5.1 [facility] Comment on above: Performed By: #### M 300.4500, M300.4600 #### [facility] [address] [place], [address] Sodium [Moles/Vol] 135 mmol/L Low 136-145 [facility] Comment on above: Performed By: #### M 300.4500, M300.4600 #### [facility] [address] [place], [address] Urea nitrogen [Mass/Vol] 10 mg/dL Normal 7-18 [facility] Comment on above: Performed By: #### M 300.4500, M300.4600 #### [facility] [address] [place], [address] CBC W/Diff, Automatedon 12-3 ATYPICAL LYMPH 1+ Normal [facility] Comment on above: Performed By: #### L 503.6005, L501.4020, L500.3400, L500.2500, L100.0100, L300.8000 #### [facility] [address] [place], [address] CTA Chest W/WO Contraston CTA Chest W/WO Contrast [facility] [address] [place] [address] CTA Chest W/WO Contrast MR#: [id number] Acct: [id number] Name: ZULMA WONG Rep #: [id number] : 1955 F 66 From: Mitch Elliott MD PCP: Dr. Shawanda Coleman MD Status: REG ER Study: CTA Chest W/WO Contrast Date of Exam: 09/25/21 Exam# [id number] Ordering Dr: Jaylyn Moran MD STUDY: CTA CHEST REASON FOR EXAM: Female, 66 years old. hypoxia, covid RADIATION DOSAGE (If Supplied By Facility): CTDIvol = ( 12.42 ) mGy, DLP = ( 499.67 ) mGycm TECHNIQUE: The examination was performed with the intravenous administration of IV 100mL Isovue-370. Post-processing of the angiographic images was performed, with multiplanar reformation and 3D reconstruction. Individualized dose optimization techniques were used for this CT. COMPARISON: Chest x-ray earlier today FINDINGS: Normal enhancement of the main pulmonary artery and right and left pulmonary arteries. Normal enhancement of the bilateral peripheral pulmonary arteries. There is no demonstrated pulmonary embolism. Normal thoracic aorta and visualized great vessels. There is no demonstrated aortic dissection. Normal heart and pericardium. Several prominent mediastinal lymph nodes which are likely reactive. Normal hilar regions. Normal visualized trachea and bronchi. The lungs are well expanded. Bilateral patchy groundglass opacities consistent with moderate subsegmental atelectasis or pneumonitis. Normal pleura. Normal chest wall structures. Normal osseous structures. Normal visualized upper abdomen. CT/CTA Chest W/WO Contrast IMPRESSION: 1. No CT evidence of pulmonary embolism. 2. Moderate bilateral subsegmental atelectasis or pneumonitis. Commonly reported imaging features of Covid 19 pneumonia are present. Other processes such as influenza pneumonia and organizing pneumonia as can be seen in drug toxicity and connective tissue disease can cause a similar imaging pattern. Electronically Signed: Mitch Elliott MD at 7:50 EST Tel , Service support , CC: Dr. Jaylyn Moran MD; Dr. Shawanda Coleman MD Data Entry Representative: Signed Normal [facility] Chest 1 View (Portable)on Chest 1 View (Portable) [facility] Imaging Services [address] [place] [id number] Chest 1 View (Portable) MR#: [id number] Acct: [id number] Name: ZULMA WONG Rep #: [id number] : 1955 F 66 From: Mitch Elliott MD PCP: Dr. Shawanda Coleman MD Status: REG ER Study: Chest 1 View (Portable) Date of Exam: 09/25/21 Exam# [id number] Ordering Dr: Jaylyn Moran MD STUDY: X-RAY CHEST REASON FOR EXAM: Female, 66 years old. sob TECHNIQUE: Single AP portable view of the chest. COMPARISON: None. FINDINGS: Alveolar opacities in the lung bases consistent with bibasilar pneumonia. There is no demonstrated pleural abnormality. Normal size heart. Normal mediastinum and sulaiman. Normal visualized pulmonary arteries. Normal visualized aortic arch and descending thoracic aorta. Normal visualized thoracic spine. Normal visualized ribs, clavicles, and shoulders. There is no demonstrated abnormality of the visualized soft tissue structures of the upper abdomen. RAD/Chest 1 View (Portable) IMPRESSION: Bibasilar pneumonia. Electronically Signed: Mitch Elliott MD at 7:30 EST Tel , Service support , CC: Dr. Jaylyn Moran MD; Dr. Shawanda Coleman MD Data Entry Representative: Signed Normal [facility] D-Dimer Quantitative (DVT/PE )on 09-25-2021 D-DIMER QUANT 2.69 FEU/ug/m Invalid Interpretation Code 0.27-0.49 [facility] Comment on above: Result Comment: D-Di mike ELEVATED (>0.49): Additional studies and clinical assessments are indicated to conclude diagnosis of: Deep Vein Thrombosis (DVT) or Pulmonary Embolism (PE) CRITICAL VALUE VERIFIED. CALLED TO Joseph YANCEY RN (ED) 09/25/21 0539 Cole Lindsay. RESULTS READ BACK BY SAME . Performed By: #### L 503.6005, L501.4020, L500.3400, L500.2500, L100.0100, L300.8000 #### [facility] [address] [place], [place], [address] Emergency Department Summary on 09-25-2021 Emergency Department Summary [facility] Medical Records Department [address] [place] [address] Emergency Department Summary 09/25/21 MR#: [id number] Acct: [id number] Name: ZULMA WONG Rep #: [id number] : 1955 66 From: Jaylyn Moran MD PCP: Dr. Shawanda Coleman MD Status:REG ER Location: ED HPI History of Present Illness Chief Complaint: Nausea/Vomiting Informant: patient Onset/Context/Timing Onset: Yesterday Narrative Narrative: Patient is currently on day 14 of Covid symptoms. She has had low-grade fever throughout with cough and shortness of breath. Yesterday she developed nausea and vomiting. She has had some loose bowel movements. She called EMS early this morning because of the vomiting. She did not receive Decadron or monoclonal antibodies. She is unvaccinated. PFSH PFSH Medical History no medical history no medical history Home Medications NK 09/25/21 [History Last Taken Unknown] Allergy/AdvReac Type Severity Reaction Status Date / Time nickel Allergy Rash Verified 09/25/21 04:58 Social History Smoking Status: Former smoker ROS ROS ED Constitutional Constitutional ED: Reports fever(s); Denies chills Eyes Eyes: Denies change in vision ENT ENT ED: Denies sore throat Cardiovascular Cardiovascular: Denies chest pain Respiratory/Chest Respiratory/Chest: Reports cough, dyspnea and sputum Gastrointestinal Gastrointestinal: Reports diarrhea, nausea and vomiting; Denies abdominal pain Genitourinary Genitourinary ED: Denies dysuria Musculoskeletal Musculoskeletal: Reports myalgias; Denies back pain Integumentary Denies rash Neurologic Neurologic: Reports weakness; Denies headache(s) Allergic/Immunologic Allergic/Immunologic ED: Denies urticaria EXAM Physical Exam Const Vital Signs: 09/25/21 04:54 09/25/21 04:57 09/25/21 05:16 Temperature 99.1 F 97.8 F Temperature Source Temporal Temporal Pulse Rate 115 H 110 H Respiratory Rate 20 H 19 H Blood Pressure 158/63 H 128/71 H Blood Pressure Mean 94 90 Pulse Ox 90 93 Oxygen Delivery Method Room Air Nasal Cannula Oxygen Flow Rate (L/min) 4 09/25/21 07:21 Temperature 97 F L Temperature Source Temporal Pulse Rate 107 H Respiratory Rate 18 Blood Pressure 103/88 H Blood Pressure Mean 93 Pulse Ox 93 Oxygen Delivery Method Nasal Cannula Oxygen Flow Rate (L/min) 4 Positive well nourished and well developed General Appearance ED: well developed HEENT Reports moist mucous membranes Eyes PERRL and EOMs intact bilaterally Neck supple Chest Wall inspection of chest normal and palpation of chest normal Resp normal respiratory effort and clear to auscultation bilaterally Cardio regular rate and regular rhythm GI non-tender Auscultation: normoactive bowel sounds Palpation: soft Extremity normal to inspection Neuro oriented x3 Sensorium / Orientation: alert Psych mental status grossly normal Skin no rashes or lesions noted MDM MDM MDM Narrative Medical decision making narrative: Patient was initially placed on 2 L of oxygen nasal cannula for O2 sat of 88%. When I am in the room her O2 sat is only 89% and I bumped her up to 4 L. At 4 L she is satting 93%. Patient was given Zofran. Lab work and chest x-ray obtained. Lab Data Attestation: I reviewed the patient's lab results. Labs: Laboratory Results - last 24 hr 09/25/21 09/25/21 09/25/21 05:00 05:00 05:00 WBC 6.9 RBC 5.02 Hgb 14.2 Hct 43.1 MCV 85.9 MCH 28.3 MCHC 32.9 RDW Std Deviation 41.0 RDW Coeff of Kristopher 13.1 Plt Count 385 MPV 9.6 Immature Gran % (Auto) 0.600 Neut % (Auto) 69.6 Lymph % (Auto) 18.8 L Dubois % (Auto) 10.7 H Eos % (Auto) 0.0 Baso % (Auto) 0.3 Absolute Neuts (auto) 4.8 Absolute Lymphs (auto) 1.29 Nucleated RBC % 0 Atypical Lymphocytes 1+ D-Dimer Quant (PE/DVT) 2.69 H* Sodium 135 L Potassium 3.5 Chloride 101 Carbon Dioxide 24.0 Anion Gap 10 BUN 10 Creatinine 0.62 Estim Creat Clear Calc 47.14 Est GFR (MDRD) Af Amer 124 Est GFR (MDRD) Non-Af 103 BUN/Creatinine Ratio 16.2 Glucose 131 H Lactic Acid Calcium 8.6 Total Bilirubin 0.70 Direct Bilirubin 0.30 AST 426 H ALT 351 H Alkaline Phosphatase 219 H Troponin I High Sens 10 Total Protein 7.4 Albumin 2.7 L Globulin 4.7 H 09/25/21 05:13 WBC RBC Hgb Hct MCV MCH MCHC RDW Std Deviation RDW Coeff of Kristopher Plt Count MPV Immature Gran % (Auto) Neut % (Auto) Lymph % (Auto) Dubois % (Auto) Eos % (Auto) Baso % (Auto) Absolute Neuts (auto) Absolute Lymphs (auto) Nucleated RBC % Atypical Lymphocy (more content not included)... Normal [facility] H AND P Exam - Hospitaliston 09-25-2021 H&P Exam - Hospitalist [facility] Medical Records Department [address] [facility] [place] [address] H P Exam - Hospitalist 09/25/21 0842 MR#: [id number] Acct: [id number] Name: ZULMA WONG Rep #: [id number] : 1955 66 From: Gem Gilliland MD PCP: Dr. Shawanda Coleman MD Status:ADM IN Location: ND3 [id number] HPI - General General Date of Admission: 09/25/21 HPI Narrative ZULMA WONG, is a 66 F with a PMH as outlined who presents with a complaint of nausea adn vomiting. Today is day 14 of her symptoms from COVID. She came in because of nausea and vomiting. She also had shortness of breath and cough, and also had some loose stools. She has not received decadron or monoclonal antibodies and she is also unvaccinated. She denied any fever or chills. She was saturating at 88% on room air in the ED, and even on 2L of oxygen only went up to 90%. Vitals in the ED were BP of 103/88, NH of 107, RR of 18 and temp of 97F. She was saturating at 93% on 4L of oxygen. CBC was unremarkable and CMP was remarkable for elevated AST(426(, ALT (351) and ALP (219). D dimer was elevated at 2.69, and CTA of the chest was negative for PE, but showed moderate bilateral subsegmental atelectasis or pneumonitis due to covid pneumonia. CXR also showed bibasilar pneumonia. She is being admitted to be managed for acute hypoxic respiratory failure due to COVID 19 pneumonia. [facility] Medical History Anxiety Medical History no medical history Home Medications Vitamin D3 1 09/25/21 [History Last Taken 09/24/21] multivitamin 1 tab PO DAILY 09/25/21 [History Last Taken Unknown] zinc 22 mg PO DAILY 09/25/21 [History Last Taken 09/24/21] Allergy/AdvReac Type Severity Reaction Status Date / Time nickel Allergy Rash Verified 09/25/21 11:46 Social History Smoking Status: Former smoker ROS Constitutional Constitutional: Reports chills, fatigue, fever(s), malaise and weakness; Denies anorexia Eyes Eyes: Denies change in vision ENT HEENT: Denies ear pain, headache(s) or nasal congestion Cardiovascular Cardiovascular: Reports dyspnea on exertion, lightheadedness, palpitations and rapid heart rate; Denies chest pain, edema, orthopnea, paroxysmal nocturnal dyspnea or syncope Respiratory/Chest Respiratory/Chest: Reports cough, dyspnea, productive cough, shortness of breath at rest, shortness of breath with exertion and wheezing; Denies excessive phlegm production Gastrointestinal Gastrointestinal: Reports nausea and vomiting; Denies abdominal pain, constipation or diarrhea Genitourinary Genitourinary: Denies burning urination, dysuria or urinary frequency Musculoskeletal Musculoskeletal: Denies arthralgias or joint pain Neurologic Neurologic: Denies confusion, dizziness, focal weakness, headache(s) or seizures Psychiatric Psychiatric: Denies anxiety Vital Signs Vital Signs Vital Signs: 09/25/21 04:54 09/25/21 04:57 09/25/21 05:16 Temperature 99.1 F 97.8 F Temperature Source Temporal Temporal Pulse Rate 115 H 110 H Respiratory Rate 20 H 19 H Blood Pressure 158/63 H 128/71 H Blood Pressure Mean 94 90 Pulse Ox 90 93 Oxygen Delivery Method Room Air Nasal Cannula Oxygen Flow Rate (L/min) 4 09/25/21 07:21 Temperature 97 F L Temperature Source Temporal Pulse Rate 107 H Respiratory Rate 18 Blood Pressure 103/88 H Blood Pressure Mean 93 Pulse Ox 93 Oxygen Delivery Method Nasal Cannula Oxygen Flow Rate (L/min) 4 Weight Weight: 207 lb 0.225 oz Body Mass Index (BMI) 35.5 Physical Exam Const alert and oriented x3 General Appearance: cooperative HEENT normocephalic, head/scalp atraumatic and hearing grossly normal bilaterally HEENT Narrative: dry oral mucous membranes Eyes PERRL, EOMs intact bilaterally and conjunctivae normal Neck no lymphadenopathy Resp Resp Narrative: diminished breath sounds bibasally, no wheezes or crackles. On 4L of oxygen by nasal canula Cardio regular rhythm, S1 normal heart sound, S2 normal heart sound and no murmurs Cardio Narrative: tachycardic. GI normal to inspection, nondistended, normoactive bowel sounds, soft to palpation, non-tender and non- distended Extremity normal to inspection, full ROM and no clubbing, cyanosis or edema Peripheral Pulses: Yes pulses 2+ throughout Skin no rashes or lesions noted Neuro oriented x3, CN's II-XII intact bilaterally and moves all extremities Sensorium / Orientation: awake and alert Psych affect normal Results Lab / Micro Data Result Diagrams: 09/25/21 05:00 09/25/21 05:00 Labs: Laboratory Results - last 24 hr 09/25/21 05:00: WBC 6.9, RBC 5.02, Hgb 14.2, Hct 43.1, MCV 85.9, MCH 28.3, MCHC 32.9, RDW Std Deviati (more content not included)... Normal [facility] L501.4020on 09-25-2021 TROPONIN-I HS 10 pg/mL Normal 3.0-54.0 [facility] Comment on above: Result Comment: Pleignacio myers Note: New Test Units and Gender Specific Reference Ranges. For more information see Policy Stat Procedure [place] High Sensitivity Troponin (TNIH) and attachments. Performed By: #### M 300.4500, M300.4600 #### [facility] [address] [place], [place], [id number] Lactic Acidon 09-25-2021 Lactate [Moles/Vol] 1.3 mmol/L Normal 0.4-1.9 [facility] Comment on above: Order Comment: Y Performed By: #### M 300.4500, M300.4600 #### [facility] [address] [place], [address] Legionella Antigen Urineon 1 LEGU URINE, CLEAN CATCH Presumptive negative for Legionella pneumophila serogroup 1 antigen in urine, suggesting no recent or current infection. Legionella Ag, Urine Negative (See interpretation below) Normal [facility] Comment on above: Performed By: #### M 300.4500, M300.4600 #### [facility] [address] [place], [address] Liver Profileon 09-25-2021 Albumin [Mass/Vol] 2.7 g/dL Low 3.2-5.0 [facility] Comment on above: Performed By: #### M 300.4500, M300.4600 #### [facility] [address] [place], [address] ALK P 219 U/L High 45-117 [facility] Comment on above: Performed By: #### M 300.4500, M300.4600 #### [facility] [address] [place], [address] ALT [Catalytic activity/Vol] 351 U/L High 13-56 [facility] Comment on above: Performed By: #### M 300.4500, M300.4600 #### [facility] [address] [place], [address] AST [Catalytic activity/Vol] 426 U/L High 15-37 [facility] Comment on above: Performed By: #### M 300.4500, M300.4600 #### [facility] [address] [place], [address] Bilirubin [Mass/Vol] 0.70 mg/dL Normal 0.20-1.00 [facility] Comment on above: Result Comment: For patients on eltrombopag therapy, use of Dimension [place] TBIL is not recommended. Performed By: #### M 300.4500, M300.4600 #### [facility] [address] [place], [address] Bilirubin.direct [Mass/Vol] 0.30 mg/dL Normal 0.00-0.30 [facility] Comment on above: Performed By: #### M 300.4500, M300.4600 #### [facility] [address] [place], [address] Globulin (S) [Mass/Vol] 4.7 g/dL High 2.2-4.2 [facility] Comment on above: Performed By: #### M 300.4500, M300.4600 #### [facility] [address] [place], [address] T PROT 7.4 g/dL Normal 6.4-8.2 [facility] Comment on above: Performed By: #### M 300.4500, M300.4600 #### [facility] [address] [place], [address] Procalcitoninon 09-25-2021 Procalcitonin 0.17 ng/mL High 0.00-0.09 [facility] Comment on above: Result Comment: A procalcitonin (PCT) level above 2.0 ng/mL on the first day of ICU admission is associated with a high risk for progression to severe sepsis and/or septic shock. A PCT level below 0.5 ng/mL on the first day of ICU admission is associated with a low risk for progression to severe and/or septic shock. Note: Concentrations <0.5 ng/mL do not exclude an infection on account of localized infections (without systemic signs) which can be associated with such low concentrations, or a systemic infection in its initial stages (<6 hours). Furthermore, increased procalcitonin can occur without infection. PCT concentrations between 0.5 and 2.0 ng/mL should be interpreted taking into account the patient's history. It is recommended to retest PCT within 6-24 hours if any concentrations <2 ng/mL are obtained. Performed By: #### L 503.6620, L509.7000 #### [facility] [address] [place], [address] Strep pneumoniae Antig(UR,CS F)on 09-25-2021 STPAG URINE, CLEAN CATCH Presumptive negative for pneumococcal pneumonia, suggesting no current or recent pneumococcal infection. Infection due to S pneumoniae cannot be ruled out since the antigen present in the sample may be below the detection limit of the test. Strep pneumo Test Negative URINE (See interpretation below) Normal [facility] Comment on above: Performed By: #### M 300.4500, M300.4600 #### [facility] [address] [place], [place], [address] Encounters Encounter Date Encounter Type Care Provider Facility Start: 08-29-2024 End: 09-03-2024 ambulatory Shawanda Coleman MD Work Phone: Internal [place] [id number] Start: 09-29-2022 ambulatory Shawanda salmeron MD Work Phone: Internal Medicine [facility] Start: 11-02-2021 End: 11-02-2021 Subsequent hospital visit by physician Xr [facility] Work Phone: Radiology Comment on above: History of pneumonia [Z87.01] Procedures Date Procedure Procedure Detail Performing Clinician Start: 12-08-2021 Lipid 1996 panel - S lenora or Plasma [facility] [place] Work Phone: Start: 11-02-2021 Radiologic exam ches t 2 views 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 Start: 12-08-2024 Diabetes Screening Diabetes Screenin g [facility] Start: 05-27-2024 Covid-19 Vaccine ( season) Covid-19 Vaccine ( season) [facility] Start: 05-27-2024 Influenza vaccination Influenza Vacc ine (#1) [facility] Start: 09-26-2023 Advance Directive Discussion Advance Directive Discussion [facility] Start: 12-07-2022 COLORECTAL CANCER SCREENING COLORECTAL CANCER SCREENING [facility] Start: 12-07-2022 FECAL OCCULT BLOOD FECAL OCCULT BLOO D [facility] Start: 12-07-2022 Screening for malign ant neoplasm of colon [facility] Start: 11-25-2022 COVID-19 VACCINE (#1) COVID-19 VACCI NE (#1) [facility] Comment on above: Postponed from 07/30 (Declined at this time) Start: 11-25-2022 HEPATITIS C SCREENING HEPATITIS C [facility] Comment on above: Postponed from 01/27 (Declined at this time) Start: 09-26-2022 ADVANCE DIRECTIVE DISCUSSION ADVANCE DIRECTIVE DISCUSSION [facility] Start: 09-26-2022 DEPRESSION ASSESSMENT DEPRESSION ASS ESSMENT [facility] Start: 05-27-2022 Influenza vaccination INFLUENZA (#1) [facility] Start: 2019 BONE DENSITY BONE DENSITY [facility] Start: 2019 Pneumococcal Vaccine : 65+ (2 of 2 - PCV) Pneumococcal Vaccine: 65+ (2 of 2 - PCV) [facility] Start: 2019 Screening for osteoporosis Bone Density Screening [facility] Start: 02-27-2016 Mammography MAMMOGRAM [facility] Start: 02-27-2016 Screening for malign ant neoplasm of breast Mammogram Screening [facility] Start: 01-23-2016 PNEUMOCOCCAL: 65+ (2 - PCV) PNEUMOCOCCAL: 65+ (2 - PCV) [facility] Start: 04-23-2008 Urine microalbumin profile [facility] Start: 01-28-2004 Influenza vaccination LUNG CANCER NICKOLAS HAWK [facility] Start: 01-28-2004 SHINGRIX VACCINE (1 of 2) SHINGRIX VACCINE (1 of 2) [facility] Start: 1999 COLOGUARD (FIT-DNA) COLOGUARD (FIT-D NA) [facility] Start: 1999 Colonoscopy COLONOSCOPY [facility] Start: [address] [facility] [facility] Start: 1999 Screening for malign ant neoplasm of colon [facility] Start: [address] [facility] Start: 01-28-1972 Depression Screening Depression Scre ening [facility] Start: 01-28-1972 Hepatitis C screening Hepatitis C Sc williams [facility] End: 09-28-2025 DBT Breast - bilateral screening NUHA SCREENING W JOSHUA Radiology Routine Encounter for screening mammogram for breast cancer 1 Occurrences starting 08/29/2024 until 09/28/2025 [facility] Work Phone: Comment on above: 1 Occurrences starti ng 08/29/2024 until 09/28/2025 End: 10-29-2023 NUHA SCREENING NUHA SCREENING Radiology Routine Encounter for screening mammogram for breast cancer 1 Occurrences starting 09/29/2022 until 10/29/2023 [facility] Work Phone: Comment on above: 1 Occurrences starti ng 09/29/2022 until 10/29/2023 Immunizations Immunization Date Immunization Notes [facility]-2015 pneumococcal polysaccharide vaccine, 23 valent Shawanda Coleman MD Work Phone: [facility] Work Phone: 07-03-2010 tuberculin skin test ; purified protein derivative solution, intradermal Xr [employer] Work Phone: [facility] 04-22-2008 tetanus and diphther ia toxoids, adsorbed, preservative free, for adult use (2 Lf of tetanus toxoid and 2 Lf of diphtheria toxoid) Shawanda Coleman MD Work Phone: [facility] 04-22-2008 tuberculin skin test ; purified protein derivative solution, intradermal [facility]r [place] Work Phone: [facility] Payers Date Payer Category Payer Unknown [employer] H[employer] POS [id number] 2020-Present [phone] [address] [place] [address] O [id number] Social History Date Type Detail Facility Start: 10-08-2021 Tobacco smoking stat us NHIS Ex-smoker [facility] Start: 12-26-1983 End: 12-25-2018 History of tobacco use Current smoker [facility] Start: 12-26-1983 End: 12-25-2018 History of tobacco use Cigarette Smoker [facility] Start: 10-08-2021 End: 11-25-2021 Cigarettes smoked current (pack per day) - Reported 1 [facility] Start: 10-08-2021 Tobacco use and exposure Smoke less tobacco non-user [facility] Start: 10-08-2021 End: 05-12-2022 Alcohol intake Ex-drinker (finding) [facility] Start: 1955 Sex Assigned At Not on file C [facility] Start: 10-08-2021 End: 11-25-2021 Tobacco use panel [facility] Start: 09-08-2021 End: 10-08-2021 Exposure to SARS-CoV-2 (event) Not sure [facility] Adult Depression Scr eening Assessment 0 [facility] Clinical Note 08-29-2024 Note Date & Type Note Facility 08-29-2024 Note Patient Outreach (IN TMMN) ZULMA WONG ([id number]) 1955 F Date Time Provider Department 08/29/24 SHAWANDA COLEMAN During your visit today, we recorded the following information about you: Allergies As of Date: 08/29/2024 Noted Allergy Reaction SEASONAL ALLERGIES 02/26/2015 9 - Itching Date Reviewed: 11/25/2021 Reviewed by: Sandra Matthew MA - Fully Assessed Visit Diagnosis:Encounter for screening mammogram for breast cancer [Z12.31] Order(s):NUHA SCREENING W JOSHUA [8192021] Order #: [id number] FUTURE Problem List As Of Date 08/29/2024 Noted Resolved HYPERLIPIDEMIA NEC/NOS [E78.5] 05/31/2008 Anxiety state [F41.1] 05/31/2008 Encounter Status:Closed by DELISA BLANCHARDUSER on 09/03/24 [facility] Discharge summary note 09-27-2021 Note Date & Type Note Facility 09-27-2021 Note [facility] Medical Records Department [address] [place] [address] Discharge Summary 09/27/21 1130 MR#: [id number] Acct: [id number] Name: ZULMA WONG Rep #: [id number] : 1955 66 From: Gem Gilliland MD PCP: Dr. Shawanda Coleman MD Status:ADM [facility] Providers Date of Admission: 09/25/21 Primary Care Physician: Dr. Shawanda Coleman MD Reason For Visit: ACUTE HYPOXIC RESP FAILURE DUE TO COVID19 Diagnosis Discharge Diagnosis (1) COVID-19: Status: Acute Code(s): U07.1 - COVID-19 (2) Acute respiratory failure with hypoxia: Status: Acute Code(s): J96.01 - Acute respiratory failure with hypoxia (3) Transaminitis: Status: Acute Code(s): R74.01 - Elevation of levels of liver transaminase levels Medications at Discharge Home Medications Vitamin D3 1 09/25/21 multivitamin 1 tab PO DAILY 09/25/21 zinc 22 mg PO DAILY 09/25/21 dexamethasone 6 mg PO DAILY #9 tab 09/27/21 Hospital Course Operations None Procedures None Summary of Care Provided Minutes Spent on Discharge: 40 Hospital Course: ZULMA WONG, is a 66 F with a PMH as outlined who presents with a complaint of nausea adn vomiting. Today is day 14 of her symptoms from COVID. She came in because of nausea and vomiting. She also had shortness of breath and cough, and also had some loose stools. She has not received decadron or monoclonal antibodies and she is also unvaccinated. She denied any fever or chills. She was saturating at 88% on room air in the ED, and even on 2L of oxygen only went up to 90%. Vitals in the ED were BP of 103/88, NH of 107, RR of 18 and temp of 97F. She was saturating at 93% on 4L of oxygen. CBC was unremarkable and CMP was remarkable for elevated AST(426(, ALT (351) and ALP (219). D dimer was elevated at 2.69, and CTA of the chest was negative for PE, but showed moderate bilateral subsegmental atelectasis or pneumonitis due to covid pneumonia. CXR also showed bibasilar pneumonia. She was admitted to be managed for acute hypoxic respiratory failure due to COVID 19 pneumonia. She was out of window for remdesivir; she was started on decadron. She was gradually weaned off of oxygen and felt much better. She was discharged home on 09/27/2021; she had walking pulse which showed that she didnt need any home oxygen. She is to follow up with her PCP in 1-2 weeks. She is to remain in self isolation till October 01, 2021 to complete a 20 day course of self isolation. Patient seen and examined prior to discharge. She felt much better and had no active complaints. Review of systems is negative. Labs and vitals reviewed. Home medication reviewed and reconciled. Physical Exam Const alert, oriented x3 and no apparent distress General Appearance: cooperative Exam Limitations: no limitations HEENT normocephalic, head/scalp atraumatic, hearing grossly normal bilaterally and moist oral mucous membranes Eyes PERRL, EOMs intact bilaterally and conjunctivae normal Neck no lymphadenopathy Resp Resp Narrative: diminished breath sounds bibasally, no wheezes or crackles. On room air. Cardio regular rate, regular rhythm, S1 normal heart sound, S2 normal heart sound and no murmurs GI normal to inspection, nondistended, normoactive bowel sounds, soft to palpation, non-tender and non- distended Extremity normal to inspection, full ROM and no clubbing, cyanosis or edema Skin no rashes or lesions noted Neuro oriented x3, CN's II-XII intact bilaterally and moves all extremities Sensorium / Orientation: awake and alert Psych affect normal Medical Records Data Medical Nutrition Assessment Dietitian: Malnutrition Criteria Met Start: 09/25/21 13:51 Freq: Status: Active Protocol: Document 09/25/21 13:51 AG (Rec: 09/25/21 13:51 AG [id number]) Nutrition Malnutrition Evidence of Malnutrition Exists Yes Malnutrition (moderate): Acute Illness/Injury Evidenced By Suboptimal Energy Intake ( Moderate),Weight Loss ( Moderate) Clinical Problem Acute Disease or Injury Related Malnutrition Etiology moderate, acute malnutrition r /t inadequate energy intake d/ t GI dysfunction Signs/Symptoms as evidenced by unintentional wt loss of 7#/3.4% x 2 weeks, estimated PO intake meeting < 75% of estimated energy needs >1 week Status Active Problem Recommendation Dietitian Recommendations/Changes regular diet, 4oz ensure clear w/ meals d/t acute malnutrition Weight / BMI Weight Weight: 195 lb 15.855 oz Body Mass Index (BMI) 33.6 ABG / Lab / Microbiology Data Result Diagrams: 09/27/21 06:35 09/27/21 06:35 Laboratory: Laboratory Results - last 24 hr 09/27/21 06:35: WBC 8.7, RBC 4.41, Hgb 12.5, Hct 39.3, MCV 89.1, MCH 28.3, MCHC 31.8 L, RDW Std Deviation 43.6, RDW Coeff of Kristopher 13.2, Plt Count 481 H, MPV 9.1, Immature Gran % (Auto) (more content not included)... [facility] Evaluation note Note Date & Type Note Facility Evaluation note Diagnosis Encounter for screening mammogram for breast cancer documented in this encounter [facility] Evaluation note Note Date & Type Note Facility Evaluation note Diagnosis History of pneumonia Personal history of pneumonia (recurrent) documented in this encounter [facility] Evaluation note Note Date & Type Note Facility Evaluation note Diagnosis Encounter for screening mammogram for breast cancer documented in this encounter [facility] Reason for referral (narrative) Diagnostic Procedure Only (Routine) - Pending Review Note Date & Type Note Facility Reason for referral (narrati ve) Specialty Diagnoses / Procedures Referred By Tanna jim Referred To Contact [facility] Diagnoses Encounter for screening mammogram for breast cancer Procedures NUHA SCREENING SCREENING MAMMOGRAPHY BI 2-VIEW BREAST INC CAD Shawanda Coleman MD [address] [place] [address] [facility] [address] [place] [address] Referral ID Status Reason Start Date Expiration Date Visits Requested Visits Authorized [id number] Pending Review Auto-Generat ed Referral 09/29/2022 10/29/2023 1 1 [facility] Reason for referral (narrative) Diagnostic Procedure Only (Routine) - New Request Note Date & Type Note Facility Reason for referral (narrati ve) Specialty Diagnoses / Procedures Referred By Tanna t Referred To Contact [facility] Diagnoses Encounter for screening mammogram for breast cancer Procedures NUHA SCREENING W JOSHUA SCREENING DIGITAL BREAST TOMOSYNTHESIS BI SCREENING MAMMOGRAPHY BI 2-VIEW BREAST INC Shawanda Hartman MD [address] [place] [address] [facility] [address] [place] [address] Referral ID Status Reason Start Date Expiration Date Visits Requested Visits Authorized [id number] New Request Auto-Generat ed Referral 08/29/2024 09/28/2025 1 1 [facility] Summary Purpose Family History No Family History Records FoundNo Family History Records Found Advance Directives No Advanced Directives Records FoundNo Advanced Directives Records Found Additional Source Comments INFORMATION SOURCE (unrecogn ized section and content) DATE CREATED AUTHOR 01/25/2022 [facility] DATE CREATED AUTHOR AUTHOR'S ORGANIZ ATION 09/05/2024 [facility] Source Comments (unrecognize d section and content) In the event this informatio n is protected by the Federal Confidentiality of Alcohol and Drug Abuse Patient Records regulations: The Federal rules restrict any use of the information to criminally investigate or prosecute any alcohol or drug abuse patient.[facility] the event this information is protected by the Federal Confidentiality of Alcohol and Drug Abuse Patient Records regulations: The Federal rules restrict any use of the information to criminally investigate or prosecute any alcohol or drug abuse patient.[facility] the event this information is protected by the Federal Confidentiality of Alcohol and Drug Abuse Patient Records regulations: The Federal rules restrict any use of the information to criminally investigate or prosecute any alcohol or drug abuse patient.[facility] Care Teams (unrecognized sec tion and content) Billposting Supervisor Relationship Specialty Start Date End Date Shawanda Coleman MD [address] [place], [place] [id number] PCP - General Family Medicine 10/05/21 [employer]post[employer] Supervisor Relationship Specialty Start Date End Date Shawanda Coleman MD [address] [place], [place] [id number] PCP - General Family Medicine 10/05/21 [employer] Supervisor Relationship Specialty Start Date End Date Shawanda Coleman MD [address] [place], [place] [id number] PCP - General Family Medicine 10/05/21 Silvana Sarkar APRN.CNP [address] [place], [place] [id number] Project Administrator Family Medicine 09/02/24 FOR RECORDS PERTAINING TO PATIENTS WHO ARE OR HAVE BEEN ENROLLED IN A CHEMICAL DEPENDENCY/SUBSTANCEABUSE PROGRAM, SOME INFORMATION MAY BE OMITTED. This clinical summary was aggregated from multiple sources. Caution should be exercised in using it in the provision of clinical care. This summary normalizes information from multiple sources, and as a consequence, information in this document may materially change the coding, format and clinical context of patient data. In addition, data may be omitted in some cases. CLINICAL DECISIONS SHOULD BE BASED ON THE PRIMARY CLINICAL RECORDS. [employer] [facility]. provides no warranty or guarantee of the accuracy or completeness of information in this document.
[2025-07-12 12:02] VITALS: BP 161/75; PULSE 98; RESP 16; O2SAT 99
[2025-07-12 12:08] LABS: Anion Gap 13 (5-15); BUN 11 mg/dL (4-19); BUN/Creat Ratio 15.6 RATIO (10-20); Calcium,Total 9.2 mg/dL (7.6-11.0); Carbon Dioxide 22.8 mmol/L (21.0-32.0); Chloride 100 mmol/L (98-108); Estimated Creatinine Clearance 72.27 ml/min (50-250); Glucose 114 mg/dL (70-99); Potassium 4.2 mmol/L (3.3-5.1)
[2025-07-12 12:09] LABS: Troponin T High Sensitivity 6 ng/L (<=14)
[2025-07-12 12:35] VITALS: BP 145/69; PULSE 92; RESP 13; O2SAT 99
[2025-07-12 13:33] VITALS: BP 145/69; PULSE 92; RESP 13; TEMP 36.6; O2SAT 99
== END 2025-07-12 13:34 | disposition home or self-care (01) ==
PROVIDERS: Emergency Provider Emergency Medicine; PCP Pediatrics; Visit Provider Emergency Medicine
DX: R07.89 Other chest pain (principal); F41.9 Anxiety disorder, unspecified; E78.00 Pure hypercholesterolemia, unspecified; I10 Essential (primary) hypertension; Z87.891 Personal history of nicotine dependence
CPT/HCPCS: 71045; 80048; 84443; 84484; 85025; 93005; 96374; 99285; A4216